=== PATIENT | female | born 1945 | race Caucasian/White ===

== ENCOUNTER 2016-07-05 21:09 | Inpatient (IN) | payer MEDICARE ==
--- NOTE | 2016-07-05 21:28 | ER Document Report ---
ED Medical Screen (RME) - General Stated Complaint: SHOULDER PAIN Notes: 70 yo female c/o right shoulder pain. fell off couch onto shoulder. did not hit head. no LOC. denies neck pain. + right leg "just doesn't feel right". hx/o DM, BS 178
[2016-07-05] MEDS ORDERED: OXYCODONE-ACETAMINOPHEN 5-325 MG TABLET PO ONE (21:31)
[2016-07-05] MEDS ORDERED: ONDANSETRON 4 MG TAB.RAPDIS PO ONE (21:53)
[2016-07-06] MEDS ORDERED: OXYCODONE HCL IR 5 MG TABLET PO ONE (02:04)
--- NOTE | 2016-07-06 02:08 | ER Document Report ---
ED Fall - General Chief Complaint: Shoulder Injury Stated Complaint: SHOULDER PAIN Time seen by provider: 02:00 Notes: Patient is a 70-year-old female that comes emergency department for chief complaint of fall injury, she states she got up from her couch, she tripped over her feet, she fell onto the floor on her right side hitting her right arm and shoulder and right hip. She complains of pain in both her right arm and shoulder and also in her hip. She denies neck pain, head injury, headache, focal numbness or weakness, bowel or bladder incontinence or retention. She is not on a blood thinner. TRAVEL OUTSIDE OF THE [place] IN LAST 30 DAYS: No - Related data Allergies/Adverse Reactions: codeine Allergy (Verified 07/05/16 21:30) diazepam [From Valium] Allergy (Verified 07/05/16 21:30) Sulfa (Sulfonamide Antibiotics) Allergy (Verified 07/05/16 21:30) Past Medical History - General Information source: Patient - Social History Smoking Status: Never Smoker Chew tobacco use (# tins/day): No Frequency of alcohol use: None Drug Abuse: None Lives with: Family Family History: Reviewed & Not Pertinent Patient has suicidal ideation: No Patient has homicidal ideation: No - Past Medical History Cardiac Medical History: Reports: Hx Hypercholesterolemia, Hx Hypertension Endocrine Medical History: Reports: Hx Diabetes Mellitus Type 2, Hx Hypothyroidism Renal/ Medical History: Denies: Hx Peritoneal Dialysis Past Surgical History: Reports: Hx Orthopedic Surgery - Immunizations Hx Diphtheria, Pertussis, Tetanus Vaccination: Yes Review of Systems - Review of Systems Constitutional: No symptoms reported EENT: No symptoms reported Cardiovascular: No symptoms reported Respiratory: No symptoms reported Gastrointestinal: No symptoms reported Genitourinary: No symptoms reported Female Genitourinary: No symptoms reported Musculoskeletal: See HPI Skin: No symptoms reported Hematologic/Lymphatic: No symptoms reported Neurological/Psychological: No symptoms reported Physical Exam - Vital signs Vitals: Temp Pulse Resp BP Pulse Ox 97.7 F 85 16 130/48 H 100 07/05/16 21:24 07/05/16 21:24 07/05/16 21:24 07/05/16 21:24 07/05/16 21:24 Interpretation: Normal - General General appearance: Alert, Anxious In distress: Mild - Patient holding her right arm close to her body, appears to be in pain - HEENT Head: Normocephalic, Atraumatic Eyes: Normal Conjunctiva: Normal Extraocular movements intact: Yes Eyelashes: Normal Pupils: PERRL Nasal: Normal Mouth/Lips: Normal Mucous membranes: Normal Pharynx: Normal Neck: Normal - Respiratory Respiratory status: No respiratory distress Chest status: Nontender. No: Tender Breath sounds: Normal. No: Decreased air movement, Wheezing Chest palpation: Normal - Cardiovascular Rhythm: Regular. No: Tachycardia Heart sounds: Normal auscultation, S1 appreciated, S2 appreciated Murmur: No - Abdominal Inspection: Normal Distension: No distension Bowel sounds: Normal Tenderness: Nontender. No: Tender, Guarding Organomegaly: No organomegaly - Back Back: Normal, Nontender. No: Tender, Vertebra tenderness - Normal cervical, thoracic, lumbar exam, no saddle anesthesia - Extremities General upper extremity: Other - Very tender over the proximal right arm, difficulty performing any range of motion, however distal child and adolescent psychiatrist, distal neurovascular exam is intact. General lower extremity: Other - Patient very tender specifically in the right groin area, cannot bear any weight on the leg, normal distal neurovascular exam. - Neurological Neuro grossly intact: Yes Cognition: Normal Orientation: AAOx4 Desiree Coma Scale Eye Opening: Spontaneous [place] Coma Scale Verbal: Oriented Dseiree Coma Scale Motor: Obeys Commands [place] Coma Scale Total: 15 Speech: Normal Motor strength normal: LUE, RUE, LLE, RLE Sensory: Normal - Psychological Associated symptoms: Normal affect, Normal mood - Skin Skin Temperature: Warm Skin Moisture: Dry Skin Color: Normal Course - Re-evaluation Re-evalutation: Review of imaging shows impaction fracture of the right proximal humerus. Patient with distal sensation and vascular exam intact, normal strength of the extremity. Normal neck, head exam. No neurological deficits. Patient denies head injury. On examination patient has significant tenderness especially in the right groin area, she states that she has not had an x-ray at, she will be sent for this, provided with more pain medication, placed in sling immobilization for the humerus. Eventually obtained x-ray of the hip, this shows acute fracture, beginning preop workup, discussed this with patient and significant other in detail. Discussed with Dr. Lombardi. Spoke with Dr. Fink, he is in agreement with preoperative studies, states he will see the patient and hope to perform operation on the patient even this morning, patient will be kept nothing by mouth as a result. Will call hospitalist for admission. 07/06/16 07:[address] Ledesma, patient will be admitted to the hospital. - Vital Signs Vital signs: Temp Pulse Resp BP Pulse Ox 97.7 F 85 20 130/48 H 100 07/05/16 21:24 07/05/16 21:24 07/06/16 02:00 07/05/16 21:24 07/05/16 21:24 - Laboratory Result Diagrams: 07/06/16 06:10 07/06/16 06:10 Laboratory results interpreted by me: 07/06/16 07/06/16 06:10 06:10 WBC 15.5 H RBC 3.61 L Hgb 10.5 L Hct 32.4 L Seg Neutrophils % 82.1 H Lymphocytes % 10.1 L Absolute Neutrophils 12.8 H Chloride 109 H BUN 25 H Creatinine 1.44 H Est GFR ( Amer) 44 L Est GFR (Non-Af Amer) 36 L Glucose 154 H - Diagnostic Test Radiology reviewed: Image reviewed, Reports reviewed Discharge - Discharge Clinical Impression: Closed right hip fracture Qualifiers: Encounter type: initial encounter Qualified Code(s): S72.001A - Fracture of unspecified part of neck of right femur, initial encounter for closed fracture Right humeral fracture Qualifiers: Encounter type: initial encounter Humerus Location: proximal Fracture type: closed Fracture morphology: other fracture Fracture alignment: nondisplaced Qualified Code(s): S42.294A - Other nondisplaced fracture of upper end of right humerus, initial encounter for closed fracture Fall Qualifiers: Encounter type: initial encounter Qualified Code(s): W19.XXXA - Unspecified fall, initial encounter Condition: Stable Disposition: ADMITTED INPATIENT Admitting Provider: Hospitalist - Dr. Ledesma Unit Admitted: Medical Floor
[2016-07-06] MEDS ORDERED: MORPHINE SULFATE 10 MG/ML INJ IV ONE (05:28)
[2016-07-06 06:34] LABS: ABSOLUTE LYMPHOCYTES (AUTO) 1.6 10^3/uL (0.5-4.7); ABSOLUTE MONOCYTES (AUTO) 1.2 10^3/uL (0.1-1.4); ABSOLUTE NEUT (AUTO) 12.8 10^3/uL (1.7-8.2); BASOPHILS % (AUTO) 0.3 % (0-2); EOSINOPHILS % (AUTO) 0.1 % (0-6); HEMATOCRIT 32.4 % (36.0-47.0); HEMOGLOBIN 10.5 g/dL (12.0-15.5); HGB HCT DIFFERENCE -0.9; LYMPHOCYTES % (AUTO) 10.1 % (13-45); MEAN CORPUSCULAR HEMOGLOBIN 29.1 pg (27.0-33.4); MEAN CORPUSCULAR HGB CONC 32.5 g/dL (32.0-36.0); MEAN CORPUSCULAR VOLUME 90 fl (80-97); MONOCYTES % (AUTO) 7.4 % (3-13); RED BLOOD COUNT 3.61 10^6/uL (3.72-5.28); RED CELL DISTRIBUTION WIDTH 13.4 % (11.5-14.0); SEGMENTED NEUTROPHILS % (AUTO) 82.1 % (42-78); WHITE BLOOD COUNT 15.5 10^3/uL (4.0-10.5)
[2016-07-06 06:47] LABS: ALANINE AMINOTRANSFERASE 34 U/L (9-52); ALKALINE PHOSPHATASE 48 U/L (38-126); ANION GAP 9 (5-19); ASPARTATE AMINO TRANSFERASE 24 U/L (14-36); BILIRUBIN,TOTAL 0.6 mg/dL (0.2-1.3); BLOOD UREA NITROGEN 25 mg/dL (7-20); CARBON DIOXIDE 23 mmol/L (22-30); CHLORIDE 109 mmol/L (98-107); CREATININE RESULT 1.44 mg/dL (0.52-1.25); GLUCOSE 154 mg/dL (75-110); POTASSIUM 4.7 mmol/L (3.6-5.0); SODIUM 140.8 mmol/L (137-145); TOTAL PROTEIN 6.9 g/dL (6.3-8.2)
[2016-07-06 06:52] LABS: PROTHROMBIN TIME 14.4 SEC (11.4-15.4)
[2016-07-06 06:53] LABS: PARTIAL THROMBOPLASTIN TIME 26.7 SEC (23.5-35.8)
[2016-07-06] MEDS ORDERED: DEXAMETHASONE SOD PHOSPHATE INJ 4 MG/1 ML VIAL ONE (07:50)
[2016-07-06] MEDS ORDERED: SUCCINYLCHOLINE CHLORIDE INJ 200 MG/10 ML VIAL ONE (07:50)
[2016-07-06] MEDS ORDERED: ONDANSETRON HCL INJ/PF 4 MG/2 ML SDV ONE (07:50)
[2016-07-06] MEDS ORDERED: PHENYLEPHRINE HCL INJ/PF 10 MG/1 ML SDV ONE (07:50)
[2016-07-06] MEDS ORDERED: MORPHINE SULFATE 10 MG/ML INJ ONE (07:57)
[2016-07-06 08:29] LABS: APPEARANCE,URINE CLEAR; BILIRUBIN,URINE NEGATIVE (NEGATIVE); GLUCOSE, URINE >=500 mg/dL (NEGATIVE); KETONES,URINE NEGATIVE (NEGATIVE); LEUKOCYTE ESTERASE,URINE NEGATIVE (NEGATIVE); NITRITE,URINE NEGATIVE (NEGATIVE); PROTEIN,URINE NEGATIVE (NEGATIVE); URINE SPECIFIC GRAVITY 1.021; UROBILINOGEN,URINE NEGATIVE mg/dL (<2.0)
[2016-07-06] MEDS ORDERED: NORMAL SALINE 1000 ML 1,000 ML IV PRN ×2 (08:57→09:00)
[2016-07-06] MEDS ORDERED: GLUCAGON,HUMAN RECOMB 1 MG INJ IM PRN (09:00)
[2016-07-06] MEDS ORDERED: IPRATROPIUM/ALBUTEROL 0.5-2.5 MG/3 ML AMPUL NEB PRN (09:00)
[2016-07-06] MEDS ORDERED: DEXTROSE 40% GEL 15 GM TUBE PO PRN ×2 (09:00)
[2016-07-06] MEDS ORDERED: DEXTROSE 50%-WATER 25 GM/50 ML DISP.SYRIN IV PRN ×2 (09:00)
[2016-07-06] MEDS ORDERED: MAGNESIUM HYDROXIDE SUSP 30 ML UDCUP PO PRN (09:05)
[2016-07-06] MEDS ORDERED: ACETAMINOPHEN 325 MG TABLET PO PRN (09:05)
[2016-07-06] MEDS ORDERED: OXYCODONE-ACETAMINOPHEN 5-325 MG TABLET PO PRN (09:05)
[2016-07-06] MEDS ORDERED: ONDANSETRON HCL INJ/PF 4 MG/2 ML SDV IV PRN ×2 (09:05→16:55)
--- NOTE | 2016-07-06 09:27 | PDOC H&P ---
History of Present Illness Admission Date/PCP: 07/06/16 08:47 Patient complains of: fall with hip and arm pain History of Present Illness: GORDON RUBIO is a 70 year old female presents to the ED from home via EMS after mechanical fall at home when she got her feet tangled up and tripped, falling hard onto her right side witih sudden pain in her hip and arm that prevented her from being able to stand or get herself up. witnessed the fall and denies head strike. states she was in her usual state of health prior to the event and no preceding chest pain, palpitations, dizziness, ASHLEY, vision changes, hearing changes, unilateral or generalized weakness, numbness or tingling. eval in the ED found Rt humeral compression/impaction type fracture and Rt intertrochanter fracture. Orthopedic surgeon consulted from the ED and asked that we admit anticipating surgery later today. She had a previous mechanical fall with ankle fracture requiring surgical repair and reports no post op complications from anesthesia, no difficulty awakening. she has no prior cardiac disease and no prior cardiac evaluation. she has excellent METS, does her own shopping, cooking, cleaning and yard work without dyspnea, chest pain or other cardiac symptoms. she has no underlying lung disease and is a never smoker. she is at low risk for perioperative cardiac event related to non vascular, low risk orthopedic surgery where the benefits of surgery outweigh the risks of not proceeding and both she and her indicate willingness to accept those risks and proceed. Past Medical History Cardiac Medical History: Reports: Hyperlipidema, Hypertension Denies: Congestive Heart Failure, Myocardial Infarction Pulmonary Medical History: Reports: None Endocrine Medical History: Reports: Diabetes Mellitus Type 2, Hypothyroidism Renal/ Medical History: Denies: Chronic Kidney Disease Musculoskeltal Medical History: Reports: Arthritis Past Surgical History Past Surgical History: Reports: Orthopedic Surgery Social History Lives with: Family Smoking Status: Never Smoker Frequency of Alcohol Use: None Hx Recreational Drug Use: No Hx Prescription Drug Abuse: No - Advance Directive Resuscitation Status: Full Code Family History Family History: Reviewed & Not Pertinent, CAD, DM Parental Family History Reviewed: Yes Children Family History Reviewed: Yes Sibling(s) Family History Reviewed.: Yes Medication/Allergy Home Medications: Amlodipine Besylate [Norvasc 5 mg Tablet] 5 mg PO DAILY 07/06/16 Aspirin [Adult Low Dose Aspirin EC] 81 mg PO DAILY 07/06/16 Atorvastatin Calcium [Lipitor 10 mg Tablet] 5 mg PO QHS 07/06/16 Benazepril HCl [Lotensin 20 mg Tablet] 20 mg PO DAILY 07/06/16 Canagliflozin/Metformin HCl [Invokamet 50-1,000 mg Tablet] 2 tab PO DAILY Fenofibrate Nanocrystallized [Tricor 48 mg Tablet] 96 mg PO DAILY 07/06/16 Levothyroxine Sodium [Synthroid 0.075 mg Tablet] 75 mcg PO DAILY 07/06/16 Omeprazole 40 mg PO DAILY 07/06/16 Allergies/Adverse Reactions: codeine Allergy (Verified 07/05/16 21:30) diazepam [From Valium] Allergy (Verified 07/05/16 21:30) Sulfa (Sulfonamide Antibiotics) Allergy (Verified 07/05/16 21:30) Review of Systems Constitutional: ABSENT: chills, fever(s), headache(s), weight gain, weight loss Eyes: ABSENT: visual disturbances Ears: ABSENT: hearing changes Cardiovascular: ABSENT: chest pain, dyspnea on exertion, edema, orthropnea, palpitations Respiratory: ABSENT: cough, hemoptysis Gastrointestinal: ABSENT: abdominal pain, constipation, diarrhea, hematemesis, hematochezia, nausea, vomiting Genitourinary: ABSENT: dysuria, hematuria Integumentary: ABSENT: rash, wounds Neurological: PRESENT: abnormal gait, paresthesias - cronic neuropathic pain in lower ext's. ABSENT: abnormal speech, confusion, dizziness, focal weakness, syncope, tingling Psychiatric: ABSENT: anxiety, depression Endocrine: ABSENT: cold intolerance, heat intolerance, polydipsia, polyuria Hematologic/Lymphatic: ABSENT: easy bleeding, easy bruising Physical Exam Vital Signs: Temp Pulse Resp BP Pulse Ox 99.4 F 79 22 H 112/59 L 99 07/06/16 08:06 07/06/16 08:06 07/06/16 08:06 07/06/16 08:06 07/06/16 08:06 General appearance: PRESENT: well-developed, well-nourished. ABSENT: no acute distress - mod distress from the pain in her arm, obese Head exam: PRESENT: atraumatic, normocephalic Eye exam: PRESENT: conjunctiva pink, EOMI, PERRLA. ABSENT: scleral icterus Mouth exam: PRESENT: moist, tongue midline Neck exam: ABSENT: carotid bruit, JVD, lymphadenopathy, thyromegaly Respiratory exam: PRESENT: clear to auscultation lanette. ABSENT: rales, rhonchi, wheezes Cardiovascular exam: PRESENT: RRR. ABSENT: diastolic murmur, rubs, systolic murmur Pulses: PRESENT: normal radial pulses, normal dorsalis pedis pul Vascular exam: PRESENT: normal capillary refill GI/Abdominal exam: PRESENT: normal bowel sounds, soft. ABSENT: distended, guarding, mass, rebound, tenderness Rectal exam: PRESENT: deferred Extremities exam: ABSENT: calf tenderness, clubbing, full ROM - ROM limited in Rt arm and leg due to pain, pedal edema Musculoskeletal exam: ABSENT: ambulatory, deformity - no obvious deformity; no ecchymosis Neurological exam: PRESENT: alert, awake, oriented to person, oriented to place , oriented to time, oriented to situation. ABSENT: motor sensory deficit Psychiatric exam: PRESENT: appropriate affect, normal mood Skin exam: PRESENT: dry, intact, warm. ABSENT: cyanosis, rash Results Laboratory Results: labs reviewed, mild leukocytosis likely stress induced; mild renal insufficiency otherwise unremarkable EKG Comments: NSR with diffusely flattened T waves but no inversion and no elevations; QTc < 400 Impressions: Shoulder X-Ray 07/05/16 21:29 IMPRESSION: Impaction type fracture of the proximal humerus. Humerus X-Ray 07/05/16 21:30 IMPRESSION: Impaction type fracture of the proximal humerus. Hip/Pelvis X-Ray 07/06/16 02:04 IMPRESSION: Minimally displaced intertrochanteric fracture of the right hip. Chest X-Ray 07/06/16 03:50 IMPRESSION: NO ACUTE RADIOGRAPHIC FINDING IN THE CHEST. Status: Image reviewed by me - reports reviewed; agree with rads Assessment & Plan - Diagnosis (1) Closed right hip fracture Qualifiers: Encounter type: initial encounter Qualified Code(s): S72.001A - Fracture of unspecified part of neck of right femur, initial encounter for closed fracture Is this a current diagnosis for this admission?: YesPlan: admit to medical floor for orthopedic sconsult and surgical repair. Ok to proceed with surgery from a medical standpoint, see HPI for details. (2) Right humeral fracture Qualifiers: Encounter type: initial encounter Humerus Location: proximal Fracture type: closed Fracture morphology: other fracture Fracture alignment: nondisplaced Qualified Code(s): S42.294A - Other nondisplaced fracture of upper end of right humerus, initial encounter for closed fracture Is this a current diagnosis for this admission?: YesPlan: as above (3) Diabetes Qualifiers: Diabetes mellitus type: type 2 Diabetes mellitus complication status: with neurologic complications Diabetes mellitus complication detail: with autonomic neuropathy Diabetes mellitus longterm insulin use: without terminal operations manager use Qualified Code(s): E11.43 - Type 2 diabetes mellitus with diabetic autonomic (poly)neuropathy Is this a current diagnosis for this admission?: YesPlan: cover with sliding scale (4) HTN (hypertension) Qualifiers: Hypertension type: essential hypertension Qualified Code(s): I10 - Essential (primary) hypertension Is this a current diagnosis for this admission?: YesPlan: continue home meds (5) Hyperlipemia Qualifiers: Hyperlipidemia type: unspecified Qualified Code(s): E78.5 - Hyperlipidemia, unspecified Is this a current diagnosis for this admission?: YesPlan: continue home meds (6) Hypothyroidism Qualifiers: Hypothyroidism type: unspecified Qualified Code(s): E03.9 - Hypothyroidism, unspecified Is this a current diagnosis for this admission?: Yes (7) Fall Qualifiers: Encounter type: initial encounter Qualified Code(s): W19.XXXA - Unspecified fall, initial encounter Is this a current diagnosis for this admission?: YesPlan: mechanical fall at home - Time Time Spent: 50 to 70 Minutes Medications reviewed and adjusted accordingly: Yes Anticipated discharge: Acute Rehab Within: within 72 hours - Inpatient Certification Medical Necessity: Significant Comorbidiites Make Outpatient Treatment Too Risky , Need for Surgery - Plan Summary Plan Summary: anticipate surgery later today, will need rehab placement in 3 days
[2016-07-06] MEDS ORDERED: ENOXAPARIN SODIUM INJ 40 MG/0.4 ML DISP.SYRIN SUBCUT ONE (10:00)
--- NOTE | 2016-07-06 10:22 | EKG REPORT ---
SEVERITY:- BORDERLINE ECG - SINUS RHYTHM BORDERLINE T WAVE ABNORMALITIES : Confirmed by: Silvana Carmichael 06-Jul-2016 10:21:29
--- NOTE | 2016-07-06 10:22 | EKG REPORT ---
SEVERITY:- BORDERLINE ECG - SINUS RHYTHM BORDERLINE T WAVE ABNORMALITIES : Confirmed by: Silvana Carmichael 06-Jul-2016 10:21:25
[2016-07-06] MEDS: HYDROMORPHONE HCL INJ/PF 2 MG/ML AMPULE IV PRN ×2 (11:20→15:11)
[2016-07-06] MEDS: DOCUSATE SODIUM 100 MG CAPSULE PO SCH (11:48)
[2016-07-06] MEDS ORDERED: DEXMEDETOMIDINE INJ 80 MCG/20 ML VIAL IV ONE (14:49)
[2016-07-06] MEDS ORDERED: KETAMINE HCL INJ 500 MG/10 ML VIAL ONE (15:15)
[2016-07-06] MEDS ORDERED: MIDAZOLAM 2 MG/2 ML INJ ONE (15:15)
[2016-07-06] MEDS ORDERED: FENTANYL CITRATE INJ/PF 100 MCG/2 ML AMPUL ONE (15:15)
[2016-07-06] MEDS ORDERED: PROPOFOL INJ 200 MG/20 ML VIAL IV ONE (15:16)
[2016-07-06] MEDS ORDERED: HYDROMORPHONE HCL INJ/PF 2 MG/ML AMPULE IV ONE (15:45)
[2016-07-06] MEDS ORDERED: MEPERIDINE HCL/PF INJ 25 MG/1 ML DISP.SYRIN IV PRN (16:55)
[2016-07-06] MEDS ORDERED: PROMETHAZINE HCL INJ 25 MG/1 ML VIAL IV PRN ×2 (16:55)
[2016-07-06] MEDS ORDERED: FENTANYL CITRATE INJ/PF 100 MCG/2 ML AMPUL IV PRN ×3 (16:55)
[2016-07-06] MEDS ORDERED: MORPHINE SULFATE 10 MG/ML INJ IV PRN (16:55)
[2016-07-06] MEDS ORDERED: DIPHENHYDRAMINE HCL 50 MG/ML VIAL IV PRN (16:55)
--- NOTE | 2016-07-06 17:48 | Operative Report ---
Operative Report DATE OF SURGERY: 07/06/16 PREOPERATIVE DIAGNOSIS: #1 Right intertrochanteric hip fracture. #2 Right proximal humerus fracture POSTOPERATIVE DIAGNOSIS: Same OPERATION: Cephalo-medullary nailing of right hip fracture SURGEON: TORSTEN COOK ANESTHESIA: GA TISSUE REMOVED OR ALTERED: None COMPLICATIONS: None ESTIMATED BLOOD LOSS: 50 mL INTRAOPERATIVE FINDINGS: As above PROCEDURE: Patient was seen and evaluated in the preoperative holding area. The right lower extremity was initialized and marked. Patient received 2 g Ancef IV for bacterial prophylaxis. Patient was taken back to the operative room where transferred operative table. Patient was placed under spinal anesthesia. Once adequate anesthetized he was carefully placed onto the hip positioner the nonoperative lower extremity and bilateral upper extremities were carefully padded and the peroneal nerve was padded and on the nonoperative extremity. The operative extremity was placed in a traction along with adduction and internal rotation. A surgical team debriefing was performed ensuring all instrumentation was available, the surgical procedure was discussed with possible concerns reviewed. A timeout was done identifying correct patient, procedure and extremity everyone in attendance agree with this and verbalized no concerns. Reduction maneuver with the use of the hip traction table were done and C-arm fluoroscopy was used to confirm optimal reduction of the intertrochanteric fracture. Once this was confirmed the lower extremity was prepped with chlor prep and draped in a sterile fashion. At this point a small skin incision was made proximal to the greater trochanter. The guidewire was placed onto the tip of the trochanter advanced down to the level of the lesser trochanter. AP and lateral fluoroscopy was used to confirm appropriate placement of the guidewire. The skin incision was then extended and the underlying fascia opened up carefully to the tip of the greater trochanter. The entry reamer was then used and advanced to the level of the lesser trochanter. At this point Nuha short gamma nail was opened up and placed onto the aiming arm and advanced down the shaft of the femur. AP and lateral fluoroscopy was then used to confirm appropriate placement of the nail. Then turned my attention to the compression screw fixation in the femoral head. The trochars were advanced to the skin, a skin incision was made, careful dissection down to the fascia to the lateral femoral cortex was then partaken. The guidewire was then used and placed in the center center position with the tip apex distance less than 25 mm. Once this position was obtained the size of the compression screw was measured. AP and lateral fluoroscopy used to confirm appropriate placement of our guide wire. The step reamer was used to drill up through the femoral neck and head. I then carefully advanced the compression screw into position. AP and lateral fluoroscopy was done to confirm appropriate placement of the compression screw this was then locked into position proximally. The compression screw was then disengaged from its mounting device and the guidewire was removed. Lastly proceeded with locking of the nail distally. Using the aiming arm the trochars were advanced to the skin, a skin incision was made. Careful dissection done with a hemostat to the lateral cortex of the femur. I then drilled the near and far cortices. Measured the appropriate sized distal locking screw and secured it into position. At this point AP/lateral and oblique views of the proximal and distal aspect of the nail were taken confirming appropriate placement of the compression screw, distal locking screw and intramedullary nail. Once this was confirmed I proceeded with copious irrigation of the proximal and distal wounds. The deep tissues were closed with 0 Vicryl suture, subcutaneous tissues and dermis were closed with 2-0 Vicryl. The skin was closed frankie. A dressing was placed. Sponge counts, instrument counts and needle counts were correct. Patient was then transferred from the operating room table to the operating room stretcher. The was no intraoperative complications patient tolerated procedure well was stable to PACU. Implants used: [place] 11 x 180 mm 130 Short Gamma Nail with a 95 mm compression screw Postoperative plan: Patient will begin physical therapy on postop day #1 with Xarelto daily.
[2016-07-06] MEDS ORDERED: CEFAZOLIN 2 GM/D5W RTU 2 GM/50 ML RTUPB IV SCH (18:00)
[2016-07-06] MEDS: CEFAZOLIN 2 GM/D5W RTU 2 GM/50 ML RTUPB IV SCH (21:18)
[2016-07-06] MEDS: OXYCODONE-ACETAMINOPHEN 5-325 MG TABLET PO PRN (22:51)
[2016-07-07] MEDS: OXYCODONE-ACETAMINOPHEN 5-325 MG TABLET PO PRN ×3 (02:46→17:11)
[2016-07-07] MEDS: LANSOPRAZOLE 15 MG TAB.RAP.DR PO SCH (05:13)
[2016-07-07] MEDS: CEFAZOLIN 2 GM/D5W RTU 2 GM/50 ML RTUPB IV SCH (05:14)
[2016-07-07] MEDS: RINGERS SOLUTION,LACTATED 1,000 ML IV PRN ×2 (05:15→19:29)
[2016-07-07 06:37] LABS: ABSOLUTE BASOPHILS # (AUTO) 0.1 10^3/uL (0.0-0.2); ABSOLUTE EOSINOPHILS # (AUTO) 0.1 10^3/uL (0.0-0.6); ABSOLUTE LYMPHOCYTES (AUTO) 2.1 10^3/uL (0.5-4.7); ABSOLUTE MONOCYTES (AUTO) 0.9 10^3/uL (0.1-1.4); ABSOLUTE NEUT (AUTO) 9.6 10^3/uL (1.7-8.2); BASOPHILS % (AUTO) 0.5 % (0-2); EOSINOPHILS % (AUTO) 0.5 % (0-6); HEMATOCRIT 26.7 % (36.0-47.0); HEMOGLOBIN 8.5 g/dL (12.0-15.5); HGB HCT DIFFERENCE -1.2; LYMPHOCYTES % (AUTO) 16.7 % (13-45); MEAN CORPUSCULAR HEMOGLOBIN 28.8 pg (27.0-33.4); MEAN CORPUSCULAR HGB CONC 31.9 g/dL (32.0-36.0); MEAN CORPUSCULAR VOLUME 90 fl (80-97); MONOCYTES % (AUTO) 7.4 % (3-13); RED BLOOD COUNT 2.95 10^6/uL (3.72-5.28); RED CELL DISTRIBUTION WIDTH 13.5 % (11.5-14.0); SEGMENTED NEUTROPHILS % (AUTO) 74.9 % (42-78); WHITE BLOOD COUNT 12.8 10^3/uL (4.0-10.5)
[2016-07-07 06:52] LABS: ANION GAP 11 (5-19); BLOOD UREA NITROGEN 26 mg/dL (7-20); CARBON DIOXIDE 19 mmol/L (22-30); CHLORIDE 110 mmol/L (98-107); CREATININE RESULT 1.43 mg/dL (0.52-1.25); GLUCOSE 107 mg/dL (75-110); POTASSIUM 4.5 mmol/L (3.6-5.0); SODIUM 139.7 mmol/L (137-145)
[2016-07-07] MEDS: ENOXAPARIN SODIUM INJ 40 MG/0.4 ML DISP.SYRIN SUBCUT SCH (08:53)
[2016-07-07] MEDS: DOCUSATE SODIUM 100 MG CAPSULE PO SCH (11:41)
--- NOTE | 2016-07-07 15:15 | PDOC PROGRESS REPORT ---
Subjective Progress Note for:: 07/07/16 Subjective:: reason for today's visit: f/u hip and humeral fx hospital course: GORDON RUBIO is a 70 year old female presents to the ED from home via EMS after mechanical fall at home when she got her feet tangled up and tripped, falling hard onto her right side witih sudden pain in her hip and arm that prevented her from being able to stand or get herself up. witnessed the fall and denies head strike. states she was in her usual state of health prior to the event and no preceding chest pain, palpitations, dizziness, ASHLEY, vision changes, hearing changes, unilateral or generalized weakness, numbness or tingling. eval in the ED found Rt humeral compression/impaction type fracture and Rt intertrochanter fracture. Orthopedic surgeon consulted from the ED and asked that we admit anticipating surgery later today. She had a previous mechanical fall with ankle fracture requiring surgical repair and reports no post op complications from anesthesia, no difficulty awakening. she has no prior cardiac disease and no prior cardiac evaluation. she has excellent METS, does her own shopping, cooking, cleaning and yard work without dyspnea, chest pain or other cardiac symptoms. she has no underlying lung disease and is a never smoker. she is at low risk for perioperative cardiac event related to non vascular, low risk orthopedic surgery where the benefits of surgery outweigh the risks of not proceeding and both she and her indicate willingness to accept those risks and proceed. ortho took for surgical repair of hip with IM nailing and recommending conservative management of the humeral fx. she seems to have tolerated the procedure well. post op H/H did drop as expected without alternate source for blood loss evident. Subjective: c/o intense pain in her arm as before, no better but no different than above. hip pain is tolerable with current regimen. denies chest pain, fevers/ chills, N/V/D. ROS: per HPI plus a total of 10 systems reviewed, pertinent positives and negatives noted above, remaining systems negative. Physical Exam Vital Signs: Temp Pulse Resp BP Pulse Ox 98.7 F 81 16 115/40 L 100 07/07/16 12:00 07/07/16 12:37 07/07/16 12:37 07/07/16 12:00 07/07/16 12:37 Intake & Output 07/06/16 07/07/16 07/08/16 06:59 06:59 06:59 Intake Total 2200 Output Total 490 Balance 1710 Weight 61.4 kg EXAM GENERAL: NAD; well developed, well nourished; no obese; alert and oriented to person, place, time, situation HEENT: normocephalic, atraumatic; no conjunctival injection, no scleral icterus ; oral mucosa moist; RESPIRATORY: no accessory muscle use, no increased WOB, good air entry bilaterally; no wheezes, rales, rhonchi; no inspiratory crackles CARDIO: no JVD; RRR; no systolic murmur; no tachycardia GI: soft; nondistended; normal bowel sounds; no hepato spleno megaly; no rebound, rigidity, guarding VASCULAR: no carotid bruit; no abdominal bruit; no pallor; 2+ radial, DP pulse ; normal capillary refill EXTREMITIES: no calf tender; no palpable cords in calf; no clubbing, cyanosis , pedal edema PSYCH: normal affect, normal mood SKIN: warm; moist; no petechiae; no telengectasias; no jaundice; no rash Results Laboratory Results: 07/07/16 05:42 07/07/16 05:42 07/07/16 07/07/16 05:42 05:42 WBC 12.8 H RBC 2.95 L Hgb 8.5 L Hct 26.7 L MCV 90 MCH 28.8 MCHC 31.9 L RDW 13.5 Plt Count 250 Seg Neutrophils % 74.9 Lymphocytes % 16.7 Monocytes % 7.4 Eosinophils % 0.5 Basophils % 0.5 Absolute Neutrophils 9.6 H Absolute Lymphocytes 2.1 Absolute Monocytes 0.9 Absolute Eosinophils 0.1 Absolute Basophils 0.1 Sodium 139.7 Potassium 4.5 Chloride 110 H Carbon Dioxide 19 L Anion Gap 11 BUN 26 H Creatinine 1.43 H Est GFR ( Amer) 44 L Est GFR (Non-Af Amer) 36 L Glucose 107 Calcium 9.0 Impressions: Chest X-Ray 07/06/16 03:50 IMPRESSION: NO ACUTE RADIOGRAPHIC FINDING IN THE CHEST. Hip/Pelvis X-Ray 07/07/16 00:00 IMPRESSION: SATISFACTORY POSTOPERATIVE RIGHT HIP. Status: Imported from PACS Assessment & Plan - Diagnosis (1) Closed right hip fracture Qualifiers: Encounter type: initial encounter Qualified Code(s): S72.001A - Fracture of unspecified part of neck of right femur, initial encounter for closed fracture Is this a current diagnosis for this admission?: YesPlan: s/p surgical repair (2) Right humeral fracture Qualifiers: Encounter type: initial encounter Humerus Location: proximal Fracture type: closed Fracture morphology: other fracture Fracture alignment: nondisplaced Qualified Code(s): S42.294A - Other nondisplaced fracture of upper end of right humerus, initial encounter for closed fracture Is this a current diagnosis for this admission?: YesPlan: conservative management with immobilization and pain control (3) Diabetes Qualifiers: Diabetes mellitus type: type 2 Diabetes mellitus complication status: with neurologic complications Diabetes mellitus complication detail: with autonomic neuropathy Diabetes mellitus long term care administrator insulin use: without long term care administrator use Qualified Code(s): E11.43 - Type 2 diabetes mellitus with diabetic autonomic (poly)neuropathy; Z79.4 - intermediate frame tender (current) use of insulin Is this a current diagnosis for this admission?: Yes (4) HTN (hypertension) Qualifiers: Hypertension type: essential hypertension Qualified Code(s): I10 - Essential (primary) hypertension Is this a current diagnosis for this admission?: Yes (5) Hyperlipemia Qualifiers: Hyperlipidemia type: unspecified Qualified Code(s): E78.5 - Hyperlipidemia, unspecified Is this a current diagnosis for this admission?: Yes (6) Hypothyroidism Qualifiers: Hypothyroidism type: unspecified Qualified Code(s): E03.9 - Hypothyroidism, unspecified Is this a current diagnosis for this admission?: Yes (7) Fall Qualifiers: Encounter type: initial encounter Qualified Code(s): W19.XXXA - Unspecified fall, initial encounter Is this a current diagnosis for this admission?: Yes (8) Postoperative anemia Is this a current diagnosis for this admission?: YesPlan: likely related to orthopedic surgery; f/u labs later today, transfuse as needed. - Time Time Spent with patient: 15-24 minutes Anticipated discharge: Acute Rehab Within: within 24 hours
[2016-07-07 16:17] LABS: ABSOLUTE EOSINOPHILS # (AUTO) 0.4 10^3/uL (0.0-0.6); ABSOLUTE LYMPHOCYTES (AUTO) 2.7 10^3/uL (0.5-4.7); ABSOLUTE MONOCYTES (AUTO) 1.1 10^3/uL (0.1-1.4); ABSOLUTE NEUT (AUTO) 8.5 10^3/uL (1.7-8.2); BASOPHILS % (AUTO) 0.4 % (0-2); EOSINOPHILS % (AUTO) 3.5 % (0-6); HEMATOCRIT 26.1 % (36.0-47.0); HEMOGLOBIN 8.5 g/dL (12.0-15.5); HGB HCT DIFFERENCE -0.6; LYMPHOCYTES % (AUTO) 21.1 % (13-45); MEAN CORPUSCULAR HEMOGLOBIN 29.5 pg (27.0-33.4); MEAN CORPUSCULAR HGB CONC 32.7 g/dL (32.0-36.0); MEAN CORPUSCULAR VOLUME 90 fl (80-97); MONOCYTES % (AUTO) 8.4 % (3-13); RED CELL DISTRIBUTION WIDTH 13.5 % (11.5-14.0); SEGMENTED NEUTROPHILS % (AUTO) 66.6 % (42-78); WHITE BLOOD COUNT 12.8 10^3/uL (4.0-10.5)
[2016-07-07] MEDS ORDERED: [UNRECOGNIZED DRUG - OTHER] PO SCH (17:45)
[2016-07-07] MEDS ORDERED: PHARMACY COMMUNICATION ORDER MC NR (17:45)
[2016-07-07] MEDS ORDERED: CANAGLIFLOZIN PO SCH (17:45)
[2016-07-07] MEDS ORDERED: METFORMIN HCL PO SCH (17:45)
[2016-07-07] MEDS: INSULIN LISPRO 100 UNIT/ML 3 ML VIAL SUBCUT PRN ×2 (17:55→23:51)
[2016-07-07] MEDS ORDERED: IBUPROFEN 800 MG TABLET PO PRN (18:12)
[2016-07-07] MEDS: ATORVASTATIN CALCIUM 10 MG TABLET PO SCH (23:49)
[2016-07-08] MEDS: OXYCODONE-ACETAMINOPHEN 5-325 MG TABLET PO PRN (04:55)
[2016-07-08] MEDS: LANSOPRAZOLE 15 MG TAB.RAP.DR PO SCH (05:37)
[2016-07-08 07:26] LABS: ABSOLUTE EOSINOPHILS # (AUTO) 0.4 10^3/uL (0.0-0.6); ABSOLUTE MONOCYTES (AUTO) 0.8 10^3/uL (0.1-1.4); ABSOLUTE NEUT (AUTO) 7.1 10^3/uL (1.7-8.2); BASOPHILS % (AUTO) 0.2 % (0-2); EOSINOPHILS % (AUTO) 4.1 % (0-6); HEMATOCRIT 24.7 % (36.0-47.0); HEMOGLOBIN 8.2 g/dL (12.0-15.5); HGB HCT DIFFERENCE -0.1; LYMPHOCYTES % (AUTO) 11.1 % (13-45); MEAN CORPUSCULAR HEMOGLOBIN 29.6 pg (27.0-33.4); MEAN CORPUSCULAR HGB CONC 33.1 g/dL (32.0-36.0); MEAN CORPUSCULAR VOLUME 89 fl (80-97); MONOCYTES % (AUTO) 8.6 % (3-13); RED BLOOD COUNT 2.77 10^6/uL (3.72-5.28); RED CELL DISTRIBUTION WIDTH 13.4 % (11.5-14.0); WHITE BLOOD COUNT 9.3 10^3/uL (4.0-10.5)
[2016-07-08 07:52] LABS: ANION GAP 8 (5-19); BLOOD UREA NITROGEN 23 mg/dL (7-20); CALCIUM 8.8 mg/dL (8.4-10.2); CARBON DIOXIDE 21 mmol/L (22-30); CHLORIDE 109 mmol/L (98-107); CREATININE RESULT 1.37 mg/dL (0.52-1.25); GLUCOSE 148 mg/dL (75-110); POTASSIUM 4.5 mmol/L (3.6-5.0); SODIUM 137.5 mmol/L (137-145)
[2016-07-08] MEDS: LEVOTHYROXINE SODIUM 0.075 MG TABLET PO SCH (09:23)
[2016-07-08] MEDS: DOCUSATE SODIUM 100 MG CAPSULE PO SCH (09:23)
[2016-07-08] MEDS: ENOXAPARIN SODIUM INJ 40 MG/0.4 ML DISP.SYRIN SUBCUT SCH (09:24)
[2016-07-08] MEDS: ASPIRIN 81 MG TABLET, ENT COATED PO SCH (09:24)
--- NOTE | 2016-07-08 11:28 | PDOC PROGRESS REPORT ---
Subjective Progress Note for:: 07/08/16 Subjective:: Patient is resting in bed comfortably and is other active and oriented. Physical Exam Vital Signs: Temp Pulse Resp BP Pulse Ox 36.6 C 79 17 127/47 H 95 07/08/16 07:34 07/08/16 07:34 07/08/16 07:34 07/08/16 07:34 07/08/16 07:34 Intake & Output 07/07/16 07/08/16 07/09/16 06:59 06:59 07:59 Intake Total 2200 2815 Output Total 490 775 Balance 1710 2040 Weight 61.4 kg Adult Front & Back Image: 1 - Dressing dry clean and intact. Neurovascular intact distally 2 - Right upper extremity is neurovascularly intact distally. Tenderness to palpation as expected with mild swelling. Sling in place and intact Results Laboratory Results: 07/08/16 06:46 07/08/16 06:46 07/07/16 07/08/16 07/08/16 15:50 06:46 06:46 WBC 12.8 H 9.3 RBC 2.90 L 2.77 L Hgb 8.5 L 8.2 L Hct 26.1 L 24.7 L MCV 90 89 MCH 29.5 29.6 MCHC 32.7 33.1 RDW 13.5 13.4 Plt Count 237 206 Seg Neutrophils % 66.6 76.0 Lymphocytes % 21.1 11.1 L Monocytes % 8.4 8.6 Eosinophils % 3.5 4.1 Basophils % 0.4 0.2 Absolute Neutrophils 8.5 H 7.1 Absolute Lymphocytes 2.7 1.0 Absolute Monocytes 1.1 0.8 Absolute Eosinophils 0.4 0.4 Absolute Basophils 0.0 0.0 Sodium 137.5 Potassium 4.5 Chloride 109 H Carbon Dioxide 21 L Anion Gap 8 BUN 23 H Creatinine 1.37 H Est GFR ( Amer) 46 L Est GFR (Non-Af Amer) 38 L Glucose 148 H Calcium 8.8 Impressions: Shoulder X-Ray 07/05/16 21:29 IMPRESSION: Impaction type fracture of the proximal humerus. Humerus X-Ray 07/05/16 21:30 IMPRESSION: Impaction type fracture of the proximal humerus. Fluoroscopy 07/06/16 00:00 IMPRESSION: Please see combined report for performance of procedure and radiologic supervision and interpretation. Chest X-Ray 07/06/16 03:50 IMPRESSION: NO ACUTE RADIOGRAPHIC FINDING IN THE CHEST. Hip/Pelvis X-Ray 07/07/16 00:00 IMPRESSION: SATISFACTORY POSTOPERATIVE RIGHT HIP. Assessment & Plan - Plan Summary Plan Summary: 70-year-old female who is postop day #2 after cephalo-medullary nailing of the right intertrochanteric hip fracture and nonoperative treatment of her right proximal humerus fracture Patient is to be weightbearing as tolerated right lower extremity and nonweightbearing in a sling of the right upper extremity Continue pain control and DVT prophylaxis. Continue H&H monitoring
[2016-07-08] MEDS ORDERED: ONDANSETRON 4 MG TAB.RAPDIS PO PRN (11:41)
--- NOTE | 2016-07-08 13:59 | PDOC PROGRESS REPORT ---
Subjective Progress Note for:: 07/08/16 Subjective:: reason for today's visit: f/u hip and humeral fx hospital course: GORDON RUBIO is a 70 year old female presents to the ED from home via EMS after mechanical fall at home when she got her feet tangled up and tripped, falling hard onto her right side witih sudden pain in her hip and arm that prevented her from being able to stand or get herself up. witnessed the fall and denies head strike. states she was in her usual state of health prior to the event and no preceding chest pain, palpitations, dizziness, ASHLEY, vision changes, hearing changes, unilateral or generalized weakness, numbness or tingling. eval in the ED found Rt humeral compression/impaction type fracture and Rt intertrochanter fracture. Orthopedic surgeon consulted from the ED and asked that we admit anticipating surgery later today. She had a previous mechanical fall with ankle fracture requiring surgical repair and reports no post op complications from anesthesia, no difficulty awakening. she has no prior cardiac disease and no prior cardiac evaluation. she has excellent METS, does her own shopping, cooking, cleaning and yard work without dyspnea, chest pain or other cardiac symptoms. she has no underlying lung disease and is a never smoker. she is at low risk for perioperative cardiac event related to non vascular, low risk orthopedic surgery where the benefits of surgery outweigh the risks of not proceeding and both she and her indicate willingness to accept those risks and proceed. ortho took for surgical repair of hip with IM nailing and recommending conservative management of the humeral fx. she seems to have tolerated the procedure well. post op H/H did drop as expected and without alternate source for blood loss evident. she lost her IV access and has refused to have anymore attempts at present. Subjective: c/o intense pain in her arm as before, no better and no different than above. hip pain is tolerable with current regimen. denies chest pain, fevers/ chills, N/V/D. ROS: per HPI plus a total of 10 systems reviewed, pertinent positives and negatives noted above, remaining systems negative. Physical Exam Vital Signs: Temp Pulse Resp BP Pulse Ox 97.9 F 84 17 152/48 H 96 07/08/16 11:50 07/08/16 12:55 07/08/16 12:55 07/08/16 11:50 07/08/16 11:50 Intake & Output 07/07/16 07/08/16 07/09/16 06:59 06:59 07:59 Intake Total 2200 2815 Output Total 490 775 Balance 1710 0 Weight 61.4 kg EXAM GENERAL: NAD; well developed, well nourished; no obese; alert and oriented to person, place, time, situation HEENT: normocephalic, atraumatic; no conjunctival injection, no scleral icterus ; oral mucosa moist; RESPIRATORY: no accessory muscle use, no increased WOB, good air entry bilaterally; no wheezes, rales, rhonchi; no inspiratory crackles CARDIO: no JVD; RRR; no systolic murmur; no tachycardia GI: soft; nondistended; normal bowel sounds; VASCULAR: no pallor; 2+ radial pulse; normal capillary refill EXTREMITIES: no calf tender; no palpable cords in calf; no clubbing, cyanosis , pedal edema; wound c/d/i PSYCH: normal affect, normal mood SKIN: warm; moist; no petechiae; no telengectasias; no jaundice; no rash Results Laboratory Results: 07/08/16 06:46 07/08/16 06:46 07/07/16 07/08/16 07/08/16 15:50 06:46 06:46 WBC 12.8 H 9.3 RBC 2.90 L 2.77 L Hgb 8.5 L 8.2 L Hct 26.1 L 24.7 L MCV 90 89 MCH 29.5 29.6 MCHC 32.7 33.1 RDW 13.5 13.4 Plt Count 237 206 Seg Neutrophils % 66.6 76.0 Lymphocytes % 21.1 11.1 L Monocytes % 8.4 8.6 Eosinophils % 3.5 4.1 Basophils % 0.4 0.2 Absolute Neutrophils 8.5 H 7.1 Absolute Lymphocytes 2.7 1.0 Absolute Monocytes 1.1 0.8 Absolute Eosinophils 0.4 0.4 Absolute Basophils 0.0 0.0 Sodium 137.5 Potassium 4.5 Chloride 109 H Carbon Dioxide 21 L Anion Gap 8 BUN 23 H Creatinine 1.37 H Est GFR ( Amer) 46 L Est GFR (Non-Af Amer) 38 L Glucose 148 H Calcium 8.8 las reviewed, H/h down only slightly again this morning Assessment & Plan - Diagnosis (1) Closed right hip fracture Qualifiers: Encounter type: initial encounter Qualified Code(s): S72.001A - Fracture of unspecified part of neck of right femur, initial encounter for closed fracture Is this a current diagnosis for this admission?: YesPlan: s/p surgical repair; awaiting placement in rehab when bed available. continue PT (2) Right humeral fracture Qualifiers: Encounter type: initial encounter Humerus Location: proximal Fracture type: closed Fracture morphology: other fracture Fracture alignment: nondisplaced Qualified Code(s): S42.294A - Other nondisplaced fracture of upper end of right humerus, initial encounter for closed fracture Is this a current diagnosis for this admission?: YesPlan: conservative management with immobilization and pain control (3) Diabetes Qualifiers: Diabetes mellitus type: type 2 Diabetes mellitus complication status: with neurologic complications Diabetes mellitus complication detail: with autonomic neuropathy Diabetes mellitus [facility] insulin use: without superintendent marine oil terminal use Qualified Code(s): E11.43 - Type 2 diabetes mellitus with diabetic autonomic (poly)neuropathy; Z79.4 - detention (current) use of insulin Is this a current diagnosis for this admission?: Yes (4) HTN (hypertension) Qualifiers: Hypertension type: essential hypertension Qualified Code(s): I10 - Essential (primary) hypertension Is this a current diagnosis for this admission?: Yes (5) Hyperlipemia Qualifiers: Hyperlipidemia type: unspecified Qualified Code(s): E78.5 - Hyperlipidemia, unspecified Is this a current diagnosis for this admission?: Yes (6) Hypothyroidism Qualifiers: Hypothyroidism type: unspecified Qualified Code(s): E03.9 - Hypothyroidism, unspecified Is this a current diagnosis for this admission?: Yes (7) Fall Qualifiers: Encounter type: initial encounter Qualified Code(s): W19.XXXA - Unspecified fall, initial encounter Is this a current diagnosis for this admission?: Yes (8) Postoperative anemia Is this a current diagnosis for this admission?: Yes - Time Time Spent with patient: 15-24 minutes
[2016-07-08] MEDS: HYDROCODONE/ACETAMINOPHEN 5-325 MG TABLET PO PRN (17:32)
[2016-07-08] MEDS: ATORVASTATIN CALCIUM 10 MG TABLET PO SCH (21:23)
[2016-07-09] MEDS: LANSOPRAZOLE 15 MG TAB.RAP.DR PO SCH (05:24)
[2016-07-09] MEDS: HYDROCODONE/ACETAMINOPHEN 5-325 MG TABLET PO PRN ×4 (05:26→22:11)
[2016-07-09 06:11] LABS: ABSOLUTE EOSINOPHILS # (AUTO) 0.5 10^3/uL (0.0-0.6); ABSOLUTE LYMPHOCYTES (AUTO) 1.9 10^3/uL (0.5-4.7); ABSOLUTE NEUT (AUTO) 6.1 10^3/uL (1.7-8.2); BASOPHILS % (AUTO) 0.4 % (0-2); EOSINOPHILS % (AUTO) 4.8 % (0-6); HEMATOCRIT 26.1 % (36.0-47.0); HEMOGLOBIN 8.5 g/dL (12.0-15.5); HGB HCT DIFFERENCE -0.6; LYMPHOCYTES % (AUTO) 20.4 % (13-45); MEAN CORPUSCULAR HEMOGLOBIN 29.2 pg (27.0-33.4); MEAN CORPUSCULAR HGB CONC 32.5 g/dL (32.0-36.0); MEAN CORPUSCULAR VOLUME 90 fl (80-97); MONOCYTES % (AUTO) 10.4 % (3-13); RED CELL DISTRIBUTION WIDTH 13.1 % (11.5-14.0); WHITE BLOOD COUNT 9.5 10^3/uL (4.0-10.5)
[2016-07-09 06:32] LABS: ANION GAP 8 (5-19); BLOOD UREA NITROGEN 19 mg/dL (7-20); CALCIUM 9.2 mg/dL (8.4-10.2); CARBON DIOXIDE 23 mmol/L (22-30); CHLORIDE 110 mmol/L (98-107); CREATININE RESULT 1.12 mg/dL (0.52-1.25); GLUCOSE 142 mg/dL (75-110); POTASSIUM 4.4 mmol/L (3.6-5.0); SODIUM 140.5 mmol/L (137-145)
[2016-07-09] MEDS: ASPIRIN 81 MG TABLET, ENT COATED PO SCH (11:46)
[2016-07-09] MEDS: LEVOTHYROXINE SODIUM 0.075 MG TABLET PO SCH (11:46)
[2016-07-09] MEDS: ENOXAPARIN SODIUM INJ 40 MG/0.4 ML DISP.SYRIN SUBCUT SCH (11:47)
[2016-07-09] MEDS: DOCUSATE SODIUM 100 MG CAPSULE PO SCH (11:47)
--- NOTE | 2016-07-09 16:28 | PDOC PROGRESS REPORT ---
Subjective Progress Note for:: 07/09/16 Subjective:: reason for today's visit: f/u hip and humeral fx hospital course: GORDON RUBIO is a 70 year old female presents to the ED from home via EMS after mechanical fall at home when she got her feet tangled up and tripped, falling hard onto her right side witih sudden pain in her hip and arm that prevented her from being able to stand or get herself up. witnessed the fall and denies head strike. states she was in her usual state of health prior to the event and no preceding chest pain, palpitations, dizziness, ASHLEY, vision changes, hearing changes, unilateral or generalized weakness, numbness or tingling. eval in the ED found Rt humeral compression/impaction type fracture and Rt intertrochanter fracture. Orthopedic surgeon consulted from the ED and asked that we admit anticipating surgery later today. She had a previous mechanical fall with ankle fracture requiring surgical repair and reports no post op complications from anesthesia, no difficulty awakening. she has no prior cardiac disease and no prior cardiac evaluation. she has excellent METS, does her own shopping, cooking, cleaning and yard work without dyspnea, chest pain or other cardiac symptoms. she has no underlying lung disease and is a never smoker. she is at low risk for perioperative cardiac event related to non vascular, low risk orthopedic surgery where the benefits of surgery outweigh the risks of not proceeding and both she and her indicate willingness to accept those risks and proceed. ortho took for surgical repair of hip with IM nailing and recommending conservative management of the humeral fx. she seems to have tolerated the procedure well. post op H/H did drop as expected and without alternate source for blood loss evident. H/H has stabilized. Subjective: c/o intense pain in her arm as before, no better and no different than above. hip pain is tolerable with current regimen. denies chest pain, fevers/ chills, N/V/D. ROS: per HPI plus a total of 10 systems reviewed, pertinent positives and negatives noted above, remaining systems negative. Physical Exam Vital Signs: Temp Pulse Resp BP Pulse Ox 98.0 F 87 18 146/64 H 98 07/09/16 11:48 07/09/16 11:48 07/09/16 11:48 07/09/16 11:48 07/09/16 11:48 Intake & Output 07/08/16 07/09/16 07/10/16 05:59 06:59 06:59 Intake Total Output Total Balance EXAM GENERAL: NAD; well developed, well nourished; no obese; alert and oriented to person, place, time, situation HEENT: normocephalic, atraumatic; no conjunctival injection, no scleral icterus ; oral mucosa moist; RESPIRATORY: no accessory muscle use, no increased WOB, good air entry bilaterally; no wheezes, rales, rhonchi; no inspiratory crackles CARDIO: no JVD; RRR; no systolic murmur; no tachycardia GI: soft; nondistended; normal bowel sounds; VASCULAR: no pallor; 2+ radial pulse; normal capillary refill EXTREMITIES: no calf tender; no palpable cords in calf; no clubbing, cyanosis , pedal edema; wound c/d/i PSYCH: normal affect, normal mood SKIN: warm; moist; no petechiae; no telengectasias; no jaundice; no rash Results Laboratory Results: 07/09/16 05:47 07/09/16 05:47 07/09/16 07/09/16 05:47 05:47 WBC 9.5 RBC 2.90 L Hgb 8.5 L Hct 26.1 L MCV 90 MCH 29.2 MCHC 32.5 RDW 13.1 Plt Count 244 Seg Neutrophils % 64.0 Lymphocytes % 20.4 Monocytes % 10.4 Eosinophils % 4.8 Basophils % 0.4 Absolute Neutrophils 6.1 Absolute Lymphocytes 1.9 Absolute Monocytes 1.0 Absolute Eosinophils 0.5 Absolute Basophils 0.0 Sodium 140.5 Potassium 4.4 Chloride 110 H Carbon Dioxide 23 Anion Gap 8 BUN 19 Creatinine 1.12 Est GFR ( Amer) 58 L Est GFR (Non-Af Amer) 48 L Glucose 142 H Calcium 9.2 Impressions: Shoulder X-Ray 07/05/16 21:29 IMPRESSION: Impaction type fracture of the proximal humerus. Humerus X-Ray 07/05/16 21:30 IMPRESSION: Impaction type fracture of the proximal humerus. Fluoroscopy 07/06/16 00:00 IMPRESSION: Please see combined report for performance of procedure and radiologic supervision and interpretation. Chest X-Ray 07/06/16 03:50 IMPRESSION: NO ACUTE RADIOGRAPHIC FINDING IN THE CHEST. Hip/Pelvis X-Ray 03/10/17 00:00 IMPRESSION: SATISFACTORY POSTOPERATIVE RIGHT HIP. Assessment & Plan - Diagnosis (1) Closed right hip fracture Qualifiers: Encounter type: initial encounter Qualified Code(s): S72.001A - Fracture of unspecified part of neck of right femur, initial encounter for closed fracture Is this a current diagnosis for this admission?: Yes (2) Right humeral fracture Qualifiers: Encounter type: initial encounter Humerus Location: proximal Fracture type: closed Fracture morphology: other fracture Fracture alignment: nondisplaced Qualified Code(s): S42.294A - Other nondisplaced fracture of upper end of right humerus, initial encounter for closed fracture Is this a current diagnosis for this admission?: Yes (3) Diabetes Qualifiers: Diabetes mellitus type: type 2 Diabetes mellitus complication status: with neurologic complications Diabetes mellitus complication detail: with autonomic neuropathy Diabetes mellitus nursing home insulin use: without nursing home use Qualified Code(s): E11.43 - Type 2 diabetes mellitus with diabetic autonomic (poly)neuropathy; Z79.4 - terminal manager (current) use of insulin Is this a current diagnosis for this admission?: Yes (4) HTN (hypertension) Qualifiers: Hypertension type: essential hypertension Qualified Code(s): I10 - Essential (primary) hypertension Is this a current diagnosis for this admission?: Yes (5) Hyperlipemia Qualifiers: Hyperlipidemia type: unspecified Qualified Code(s): E78.5 - Hyperlipidemia, unspecified Is this a current diagnosis for this admission?: Yes (6) Hypothyroidism Qualifiers: Hypothyroidism type: unspecified Qualified Code(s): E03.9 - Hypothyroidism, unspecified Is this a current diagnosis for this admission?: Yes (7) Fall Qualifiers: Encounter type: initial encounter Qualified Code(s): W19.XXXA - Unspecified fall, initial encounter Is this a current diagnosis for this admission?: Yes (8) Postoperative anemia Is this a current diagnosis for this admission?: Yes - Time Time Spent with patient: 15-24 minutes - Plan Summary Plan Summary: transfer to rehab once bed offer made; medicallly clear to discharge anytime
[2016-07-09] MEDS: ATORVASTATIN CALCIUM 10 MG TABLET PO SCH (21:38)
[2016-07-10] MEDS: TRAMADOL HCL 50 MG TABLET PO PRN ×2 (01:34→10:15)
[2016-07-10 06:30] LABS: ABSOLUTE EOSINOPHILS # (AUTO) 0.3 10^3/uL (0.0-0.6); ABSOLUTE MONOCYTES (AUTO) 0.8 10^3/uL (0.1-1.4); ABSOLUTE NEUT (AUTO) 5.5 10^3/uL (1.7-8.2); BASOPHILS % (AUTO) 0.3 % (0-2); EOSINOPHILS % (AUTO) 3.8 % (0-6); HEMATOCRIT 24.9 % (36.0-47.0); HEMOGLOBIN 8.3 g/dL (12.0-15.5); LYMPHOCYTES % (AUTO) 22.9 % (13-45); MEAN CORPUSCULAR HEMOGLOBIN 29.7 pg (27.0-33.4); MEAN CORPUSCULAR HGB CONC 33.1 g/dL (32.0-36.0); MEAN CORPUSCULAR VOLUME 90 fl (80-97); RED BLOOD COUNT 2.78 10^6/uL (3.72-5.28); RED CELL DISTRIBUTION WIDTH 13.1 % (11.5-14.0); WHITE BLOOD COUNT 8.6 10^3/uL (4.0-10.5)
[2016-07-10 06:49] LABS: ANION GAP 8 (5-19); BLOOD UREA NITROGEN 16 mg/dL (7-20); CARBON DIOXIDE 23 mmol/L (22-30); CHLORIDE 107 mmol/L (98-107); CREATININE RESULT 1.05 mg/dL (0.52-1.25); GLUCOSE 166 mg/dL (75-110); POTASSIUM 4.5 mmol/L (3.6-5.0); SODIUM 137.6 mmol/L (137-145)
[2016-07-10] MEDS: LANSOPRAZOLE 15 MG TAB.RAP.DR PO SCH (07:00)
[2016-07-10] MEDS: HYDROCODONE/ACETAMINOPHEN 5-325 MG TABLET PO PRN ×3 (07:00→23:58)
[2016-07-10] MEDS: ENOXAPARIN SODIUM INJ 40 MG/0.4 ML DISP.SYRIN SUBCUT SCH (09:10)
[2016-07-10] MEDS: ASPIRIN 81 MG TABLET, ENT COATED PO SCH (09:11)
[2016-07-10] MEDS: DOCUSATE SODIUM 100 MG CAPSULE PO SCH (09:12)
[2016-07-10] MEDS: LEVOTHYROXINE SODIUM 0.075 MG TABLET PO SCH (09:12)
--- NOTE | 2016-07-10 16:24 | PDOC PROGRESS REPORT ---
Subjective Progress Note for:: 07/10/16 Subjective:: reason for today's visit: f/u hip and humeral fx hospital course: GORDON RUBIO is a 70 year old female presents to the ED from home via EMS after mechanical fall at home when she got her feet tangled up and tripped, falling hard onto her right side witih sudden pain in her hip and arm that prevented her from being able to stand or get herself up. witnessed the fall and denies head strike. states she was in her usual state of health prior to the event and no preceding chest pain, palpitations, dizziness, ASHLEY, vision changes, hearing changes, unilateral or generalized weakness, numbness or tingling. eval in the ED found Rt humeral compression/impaction type fracture and Rt intertrochanter fracture. Orthopedic surgeon consulted from the ED and asked that we admit anticipating surgery later today. She had a previous mechanical fall with ankle fracture requiring surgical repair and reports no post op complications from anesthesia, no difficulty awakening. she has no prior cardiac disease and no prior cardiac evaluation. she has excellent METS, does her own shopping, cooking, cleaning and yard work without dyspnea, chest pain or other cardiac symptoms. she has no underlying lung disease and is a never smoker. she is at low risk for perioperative cardiac event related to non vascular, low risk orthopedic surgery where the benefits of surgery outweigh the risks of not proceeding and both she and her indicate willingness to accept those risks and proceed. ortho took for surgical repair of hip with IM nailing and recommending conservative management of the humeral fx. she seems to have tolerated the procedure well. post op H/H did drop as expected and without alternate source for blood loss evident. H/H has stabilized. Subjective: c/o intense pain in her arm as before, no better and no different than before. hip pain is tolerable with current regimen. denies chest pain, fevers/ chills, N/V/D. ROS: per HPI plus a total of 10 systems reviewed, pertinent positives and negatives noted above, remaining systems negative. Physical Exam Vital Signs: Temp Pulse Resp BP Pulse Ox 98.4 F 83 12 126/53 H 97 07/10/16 11:41 07/10/16 11:41 07/10/16 11:41 07/10/16 11:41 07/10/16 11:41 Intake & Output 07/09/16 07/10/16 07/11/16 06:59 06:59 06:59 Intake Total 680 Output Total 175 Balance 505 EXAM GENERAL: NAD; well developed, well nourished; no obese; alert and oriented to person, place, time, situation HEENT: normocephalic, atraumatic; no conjunctival injection, no scleral icterus ; oral mucosa moist; RESPIRATORY: no accessory muscle use, no increased WOB, good air entry bilaterally; no wheezes, rales, rhonchi; no inspiratory crackles CARDIO: no JVD; RRR; no systolic murmur; no tachycardia GI: soft; nondistended; normal bowel sounds; VASCULAR: no pallor; 2+ radial pulse; normal capillary refill EXTREMITIES: no calf tender; no palpable cords in calf; no clubbing, cyanosis , pedal edema; wound c/d/i; Rt arm in sling PSYCH: normal affect, depressed mood, very tearful regarding her current situation SKIN: warm; moist; no petechiae; no telengectasias; no jaundice; no rash Results Laboratory Results: 07/10/16 06:05 07/10/16 06:05 07/10/16 07/10/16 06:05 06:05 WBC 8.6 RBC 2.78 L Hgb 8.3 L Hct 24.9 L MCV 90 MCH 29.7 MCHC 33.1 RDW 13.1 Plt Count 278 Seg Neutrophils % 64.0 Lymphocytes % 22.9 Monocytes % 9.0 Eosinophils % 3.8 Basophils % 0.3 Absolute Neutrophils 5.5 Absolute Lymphocytes 2.0 Absolute Monocytes 0.8 Absolute Eosinophils 0.3 Absolute Basophils 0.0 Sodium 137.6 Potassium 4.5 Chloride 107 Carbon Dioxide 23 Anion Gap 8 BUN 16 Creatinine 1.05 Est GFR ( Amer) > 60 Est GFR (Non-Af Amer) 52 L Glucose 166 H Calcium 9.0 Impressions: Shoulder X-Ray 07/05/16 21:29 IMPRESSION: Impaction type fracture of the proximal humerus. Humerus X-Ray 07/05/16 21:30 IMPRESSION: Impaction type fracture of the proximal humerus. Fluoroscopy 07/06/16 00:00 IMPRESSION: Please see combined report for performance of procedure and radiologic supervision and interpretation. Chest X-Ray 07/06/16 03:50 IMPRESSION: NO ACUTE RADIOGRAPHIC FINDING IN THE CHEST. Hip/Pelvis X-Ray 07/07/16 00:00 IMPRESSION: SATISFACTORY POSTOPERATIVE RIGHT HIP. Assessment & Plan - Diagnosis (1) Closed right hip fracture Qualifiers: Encounter type: initial encounter Qualified Code(s): S72.001A - Fracture of unspecified part of neck of right femur, initial encounter for closed fracture Is this a current diagnosis for this admission?: YesPlan: s/p surgical repair; awaiting placement in rehab when bed available. continue PT (2) Right humeral fracture Qualifiers: Encounter type: initial encounter Humerus Location: proximal Fracture type: closed Fracture morphology: other fracture Fracture alignment: nondisplaced Qualified Code(s): S42.294A - Other nondisplaced fracture of upper end of right humerus, initial encounter for closed fracture Is this a current diagnosis for this admission?: YesPlan: conservative management with immobilization and pain control (3) Diabetes Qualifiers: Diabetes mellitus type: type 2 Diabetes mellitus complication status: with neurologic complications Diabetes mellitus complication detail: with autonomic neuropathy Diabetes mellitus retirement insulin use: without retirement use Qualified Code(s): E11.43 - Type 2 diabetes mellitus with diabetic autonomic (poly)neuropathy; Z79.4 - [facility] (current) use of insulin Is this a current diagnosis for this admission?: Yes (4) HTN (hypertension) Qualifiers: Hypertension type: essential hypertension Qualified Code(s): I10 - Essential (primary) hypertension Is this a current diagnosis for this admission?: Yes (5) Hyperlipemia Qualifiers: Hyperlipidemia type: unspecified Qualified Code(s): E78.5 - Hyperlipidemia, unspecified Is this a current diagnosis for this admission?: Yes (6) Hypothyroidism Qualifiers: Hypothyroidism type: unspecified Qualified Code(s): E03.9 - Hypothyroidism, unspecified Is this a current diagnosis for this admission?: Yes (7) Fall Qualifiers: Encounter type: initial encounter Qualified Code(s): W19.XXXA - Unspecified fall, initial encounter Is this a current diagnosis for this admission?: Yes (8) Postoperative anemia Is this a current diagnosis for this admission?: Yes - Time Time Spent with patient: 15-24 minutes Anticipated discharge: Acute Rehab - Awaiting bed placement in [place]
[2016-07-10] MEDS: ATORVASTATIN CALCIUM 10 MG TABLET PO SCH (23:52)
[2016-07-10] MEDS: INSULIN LISPRO 100 UNIT/ML 3 ML VIAL SUBCUT PRN (23:57)
[2016-07-11] MEDS: ENOXAPARIN SODIUM INJ 40 MG/0.4 ML DISP.SYRIN SUBCUT SCH (08:22)
[2016-07-11] MEDS: TRAMADOL HCL 50 MG TABLET PO PRN ×2 (08:23→20:08)
[2016-07-11] MEDS: LEVOTHYROXINE SODIUM 0.075 MG TABLET PO SCH (09:18)
[2016-07-11] MEDS: ASPIRIN 81 MG TABLET, ENT COATED PO SCH (09:18)
[2016-07-11] MEDS: DOCUSATE SODIUM 100 MG CAPSULE PO SCH (09:18)
[2016-07-11] MEDS: HYDROCODONE/ACETAMINOPHEN 5-325 MG TABLET PO PRN ×2 (15:47→22:56)
--- NOTE | 2016-07-11 16:39 | PDOC PROGRESS REPORT ---
Subjective Progress Note for:: 07/11/16 Subjective:: Patient is complaining of some pain in the right shoulder otherwise no shortness of breath no chest pain No nausea vomiting no fever no chills Physical Exam Vital Signs: Temp Pulse Resp BP Pulse Ox 98.6 F 82 16 130/52 H 98 07/11/16 15:22 07/11/16 15:22 07/11/16 15:22 07/11/16 15:22 07/11/16 15:22 Intake & Output 07/10/16 07/11/16 07/12/16 00:59 00:59 00:59 Intake Total 1320 320 Output Total 475 375 Balance 845 -55 General appearance: PRESENT: no acute distress, other - She looks pale Head exam: PRESENT: atraumatic, normocephalic Eye exam: PRESENT: conjunctiva pale Neck exam: ABSENT: carotid bruit, JVD, lymphadenopathy, thyromegaly Respiratory exam: PRESENT: clear to auscultation lanette. ABSENT: rales, rhonchi, wheezes Cardiovascular exam: PRESENT: RRR. ABSENT: diastolic murmur, rubs, systolic murmur Extremities exam: PRESENT: full ROM. ABSENT: calf tenderness, clubbing, pedal edema Neurological exam: PRESENT: alert, awake, oriented to person, oriented to place , oriented to time, oriented to situation, CN II-XII grossly intact. ABSENT: motor sensory deficit Results Laboratory Results: 07/10/16 06:05 07/10/16 06:05 Impressions: Shoulder X-Ray 07/05/16 21:29 IMPRESSION: Impaction type fracture of the proximal humerus. Humerus X-Ray 07/05/16 21:30 IMPRESSION: Impaction type fracture of the proximal humerus. Fluoroscopy 07/06/16 00:00 IMPRESSION: Please see combined report for performance of procedure and radiologic supervision and interpretation. Chest X-Ray 07/06/16 03:50 IMPRESSION: NO ACUTE RADIOGRAPHIC FINDING IN THE CHEST. Hip/Pelvis X-Ray 07/07/16 00:00 IMPRESSION: SATISFACTORY POSTOPERATIVE RIGHT HIP. Assessment & Plan - Diagnosis (1) Anemia Qualifiers: Other causes of anemia: other cause, not classified Is this a current diagnosis for this admission?: YesPlan: Likely iron deficiency anemia we'll repeat labs in a.m. (2) Closed right hip fracture Qualifiers: Encounter type: initial encounter Qualified Code(s): S72.001A - Fracture of unspecified part of neck of right femur, initial encounter for closed fracture Is this a current diagnosis for this admission?: Yes (3) Diabetes Qualifiers: Diabetes mellitus type: type 2 Diabetes mellitus complication status: with neurologic complications Diabetes mellitus complication detail: with autonomic neuropathy Diabetes mellitus master rigger insulin use: without fdc use Qualified Code(s): E11.43 - Type 2 diabetes mellitus with diabetic autonomic (poly)neuropathy; Z79.4 - nursing home (current) use of insulin Is this a current diagnosis for this admission?: Yes (4) Fall Qualifiers: Encounter type: initial encounter Qualified Code(s): W19.XXXA - Unspecified fall, initial encounter Is this a current diagnosis for this admission?: Yes (5) HTN (hypertension) Qualifiers: Hypertension type: essential hypertension Qualified Code(s): I10 - Essential (primary) hypertension Is this a current diagnosis for this admission?: Yes (6) Right humeral fracture Qualifiers: Encounter type: initial encounter Humerus Location: proximal Fracture type: closed Fracture morphology: other fracture Fracture alignment: nondisplaced Qualified Code(s): S42.294A - Other nondisplaced fracture of upper end of right humerus, initial encounter for closed fracture Is this a current diagnosis for this admission?: Yes - Time Time Spent with patient: Patient is stable for transfer to rehabilitation in a.m. Time Spent with patient: 25-34 minutes - Patient
[2016-07-11] MEDS: LANSOPRAZOLE 15 MG TAB.RAP.DR PO SCH (20:09)
[2016-07-11] MEDS: ATORVASTATIN CALCIUM 10 MG TABLET PO SCH (22:49)
[2016-07-12] MEDS: LANSOPRAZOLE 15 MG TAB.RAP.DR PO SCH (05:29)
[2016-07-12 05:42] LABS: ABSOLUTE BASOPHILS # (AUTO) 0.1 10^3/uL (0.0-0.2); ABSOLUTE EOSINOPHILS # (AUTO) 0.5 10^3/uL (0.0-0.6); ABSOLUTE LYMPHOCYTES (AUTO) 2.5 10^3/uL (0.5-4.7); ABSOLUTE MONOCYTES (AUTO) 0.9 10^3/uL (0.1-1.4); ABSOLUTE NEUT (AUTO) 3.9 10^3/uL (1.7-8.2); BASOPHILS % (AUTO) 0.8 % (0-2); EOSINOPHILS % (AUTO) 6.9 % (0-6); HEMATOCRIT 26.5 % (36.0-47.0); HEMOGLOBIN 8.7 g/dL (12.0-15.5); HGB HCT DIFFERENCE -0.4; LYMPHOCYTES % (AUTO) 32.1 % (13-45); MEAN CORPUSCULAR HEMOGLOBIN 29.3 pg (27.0-33.4); MEAN CORPUSCULAR HGB CONC 32.9 g/dL (32.0-36.0); MEAN CORPUSCULAR VOLUME 89 fl (80-97); MONOCYTES % (AUTO) 11.7 % (3-13); RED BLOOD COUNT 2.96 10^6/uL (3.72-5.28); SEGMENTED NEUTROPHILS % (AUTO) 48.5 % (42-78); WHITE BLOOD COUNT 7.9 10^3/uL (4.0-10.5)
[2016-07-12] MEDS: HYDROCODONE/ACETAMINOPHEN 5-325 MG TABLET PO PRN ×3 (07:28→19:41)
[2016-07-12] MEDS: ENOXAPARIN SODIUM INJ 40 MG/0.4 ML DISP.SYRIN SUBCUT SCH (08:23)
[2016-07-12] MEDS: LEVOTHYROXINE SODIUM 0.075 MG TABLET PO SCH (09:47)
[2016-07-12] MEDS: ASPIRIN 81 MG TABLET, ENT COATED PO SCH (09:47)
[2016-07-12] MEDS: DOCUSATE SODIUM 100 MG CAPSULE PO SCH (09:48)
--- NOTE | 2016-07-12 10:37 | PDOC TRANSFER SUMMARY ---
General - Admit/Disc Date/PCP Admission Date/Primary Care Provider: 07/06/16 09:00 Discharge Date: 07/12/16 - Discharge Diagnosis (1) Anemia Is this a current diagnosis for this admission?: YesSummary: anemia of chronic disease and iron deficiency added ferrous sulfate 325 mg daily for one month (2) Closed right hip fracture Is this a current diagnosis for this admission?: YesSummary: underwent surgery Dr Danae kebede surgical report DATE OF SURGERY: 07/06/16 PREOPERATIVE DIAGNOSIS: #1 Right intertrochanteric hip fracture. #2 Right proximal humerus fracture POSTOPERATIVE DIAGNOSIS: Same OPERATION: Cephalo-medullary nailing of right hip fracture SURGEON: TORSTEN COOK ANESTHESIA: GA TISSUE REMOVED OR ALTERED: None COMPLICATIONS: None ESTIMATED BLOOD LOSS: 50 mL INTRAOPERATIVE FINDINGS: As above PROCEDURE: Patient was seen and evaluated in the preoperative holding area. The right lower extremity was initialized and marked. Patient received 2 g Ancef IV for bacterial prophylaxis. Patient was taken back to the operative room where transferred operative table. Patient was placed under spinal anesthesia. Once adequate anesthetized he was carefully placed onto the hip positioner the nonoperative lower extremity and bilateral upper extremities were carefully padded and the peroneal nerve was padded and on the nonoperative extremity. The operative extremity was placed in a traction along with adduction and internal rotation. A surgical team debriefing was performed ensuring all instrumentation was available, the surgical procedure was discussed with possible concerns reviewed. A timeout was done identifying correct patient, procedure and extremity everyone in attendance agree with this and verbalized no concerns. Reduction maneuver with the use of the hip traction table were done and C-arm fluoroscopy was used to confirm optimal reduction of the intertrochanteric fracture. Once this was confirmed the lower extremity was prepped with chlor prep and draped in a sterile fashion. At this point a small skin incision was made proximal to the greater trochanter. The guidewire was placed onto the tip of the trochanter advanced down to the level of the lesser trochanter. AP and lateral fluoroscopy was used to confirm appropriate placement of the guidewire. The skin incision was then extended and the underlying fascia opened up carefully to the tip of the greater trochanter. The entry reamer was then used and advanced to the level of the lesser trochanter. At this point [place] short gamma nail was opened up and placed onto the aiming arm and advanced down the shaft of the femur. AP and lateral fluoroscopy was then used to confirm appropriate placement of the nail. Then turned my attention to the compression screw fixation in the femoral head. The trochars were advanced to the skin, a skin incision was made, careful dissection down to the fascia to the lateral femoral cortex was then partaken. The guidewire was then used and placed in the center center position with the tip apex distance less than 25 mm. Once this position was obtained the size of the compression screw was measured. AP and lateral fluoroscopy used to confirm appropriate placement of our guide wire. The step reamer was used to drill up through the femoral neck and head. I then carefully advanced the compression screw into position. AP and lateral fluoroscopy was done to confirm appropriate placement of the compression screw this was then locked into position proximally. The compression screw was then disengaged from its mounting device and the guidewire was removed. Lastly proceeded with locking of the nail distally. Using the aiming arm the trochars were advanced to the skin, a skin incision was made. Careful dissection done with a hemostat to the lateral cortex of the femur. I then drilled the near and far cortices. Measured the appropriate sized distal locking screw and secured it into position. At this point AP/lateral and oblique views of the proximal and distal aspect of the nail were taken confirming appropriate placement of the compression screw, distal locking screw and intramedullary nail. Once this was confirmed I proceeded with copious irrigation of the proximal and distal wounds. The deep tissues were closed with 0 Vicryl suture, subcutaneous tissues and dermis were closed with 2-0 Vicryl. The skin was closed frankie. A dressing was placed. Sponge counts, instrument counts and needle counts were correct. Patient was then transferred from the operating room table to the operating room stretcher. The was no intraoperative complications patient tolerated procedure well was stable to PACU. Implants used: [place] 11 x 180 mm 130 Short Gamma Nail with a 95 mm compression screw Postoperative plan: Patient will begin physical therapy on postop day #1 with Xarelto daily. Course was uneventful Patient to continue physical therapy (3) Diabetes Is this a current diagnosis for this admission?: YesSummary: 07/11/16 07/11/16 07/11/16 07:04 11:33 16:17 POC Glucose 145 H 162 H 192 H 07/11/16 07/12/16 22:52 07:31 POC Glucose 210 H 161 H patient was covered with insulin sliding scale at discharge patients previous meds were resumed -invonkamet continue diabetic diet check fasting blood sugars and 4 pm blood sugars for 1 week (4) Fall Is this a current diagnosis for this admission?: Yes (5) HTN (hypertension) Is this a current diagnosis for this admission?: YesSummary: blood pressure controlled (6) Right humeral fracture Is this a current diagnosis for this admission?: YesSummary: keep right arm in a sling - Additional Information Resuscitation Status: Full Code Home Medications: Amlodipine Besylate [Norvasc 5 mg Tablet] 5 mg PO DAILY 07/06/16 Aspirin [Adult Low Dose Aspirin EC] 81 mg PO DAILY 07/06/16 Atorvastatin Calcium [Lipitor 10 mg Tablet] 5 mg PO QHS 07/06/16 Benazepril HCl [Lotensin 20 mg Tablet] 20 mg PO DAILY 07/06/16 Canagliflozin/Metformin HCl [Invokamet 50-1,000 mg Tablet] 2 tab PO DAILY Fenofibrate Nanocrystallized [Tricor 48 mg Tablet] 96 mg PO DAILY 07/06/16 Levothyroxine Sodium [Synthroid 0.075 mg Tablet] 75 mcg PO DAILY 07/06/16 Omeprazole 40 mg PO DAILY 07/06/16 Ferrous Sulfate 324 mg PO DAILY #30 tablet. 07/12/16 Hydrocodone/Acetaminophen [[place] 5-325 mg Tablet] 1 tab PO Q4HP PRN #30 tablet 07/12/16 Polyethylene Glycol 3350 [Miralax Powder 17 gm/Packet] 1 packet PO QHS #30 pkg 07/12/16 History of Present Illness Admission Date/PCP: 07/06/16 09:00 Patient complains of: fall. fracture right hip/ right arm History of Present Illness: presents to the ED from home via EMS after mechanical fall at home when she got her feet tangled up and tripped, falling hard onto her right side witih sudden pain in her hip and arm that prevented her from being able to stand or get herself up. witnessed the fall and denies head strike. states she was in her usual state of health prior to the event and no preceding chest pain, palpitations, dizziness, ASHLEY, vision changes, hearing changes, unilateral or generalized weakness, numbness or tingling. eval in the ED found Rt humeral compression/impaction type fracture and Rt intertrochanter fracture. Orthopedic surgeon consulted from the ED and asked that we admit anticipating surgery later today. She had a previous mechanical fall with ankle fracture requiring surgical repair and reports no post op complications from anesthesia, no difficulty awakening. she has no prior cardiac disease and no prior cardiac evaluation. she has excellent METS, does her own shopping, cooking, cleaning and yard work without dyspnea, chest pain or other cardiac symptoms. she has no underlying lung disease and is a never smoker. she is at low risk for perioperative cardiac event related to non vascular, low risk orthopedic surgery where the benefits of surgery outweigh the risks of not proceeding and both she and her indicate willingness to accept those risks and proceed. Hospital Course Hospital Course: see above Physical Exam Vital Signs: Temp Pulse Resp BP Pulse Ox 98.5 F 72 12 147/63 H 100 07/12/16 08:09 07/12/16 08:09 07/12/16 08:09 07/12/16 08:09 07/12/16 08:09 Intake & Output 07/11/16 07/12/16 07/13/16 00:59 00:59 00:59 Intake Total 1320 1870 180 Output Total 475 775 Balance 845 1095 180 General appearance: PRESENT: no acute distress, thin, other - very pale Head exam: PRESENT: atraumatic, normocephalic Eye exam: PRESENT: conjunctiva pink, EOMI, PERRLA. ABSENT: scleral icterus Ear exam: PRESENT: normal external ear exam Mouth exam: PRESENT: moist, tongue midline Neck exam: ABSENT: carotid bruit, JVD, lymphadenopathy, thyromegaly Respiratory exam: PRESENT: clear to auscultation lanette. ABSENT: rales, rhonchi, wheezes Cardiovascular exam: PRESENT: RRR. ABSENT: diastolic murmur, rubs, systolic murmur Pulses: PRESENT: normal dorsalis pedis pul Vascular exam: PRESENT: normal capillary refill GI/Abdominal exam: PRESENT: normal bowel sounds, soft. ABSENT: distended, guarding, mass, organolmegaly, rebound, tenderness Rectal exam: PRESENT: deferred Extremities exam: PRESENT: full ROM, other - Right upper extremity in sling. ABSENT: calf tenderness, clubbing, pedal edema Neurological exam: PRESENT: alert, awake, oriented to person, oriented to place , oriented to time, oriented to situation, CN II-XII grossly intact. ABSENT: motor sensory deficit Psychiatric exam: PRESENT: appropriate affect, normal mood. ABSENT: homicidal ideation, suicidal ideation Skin exam: PRESENT: dry, intact, warm. ABSENT: cyanosis, rash Results Laboratory Results: 07/12/16 05:26 07/10/16 06:05 07/12/16 07/12/16 05:26 05:26 WBC 7.9 RBC 2.96 L Hgb 8.7 L Hct 26.5 L MCV 89 MCH 29.3 MCHC 32.9 RDW 13.0 Plt Count 390 Seg Neutrophils % 48.5 Lymphocytes % 32.1 Monocytes % 11.7 Eosinophils % 6.9 H Basophils % 0.8 Absolute Neutrophils 3.9 Absolute Lymphocytes 2.5 Absolute Monocytes 0.9 Absolute Eosinophils 0.5 Absolute Basophils 0.1 Iron 37.9 TIBC 302 % Saturation 13 Ferritin 53.90 Vitamin B12 706.0 EKG Comments: SINUS RHYTHM [T0NS] . BORDERLINE T WAVE ABNORMALITIES Impressions: Shoulder X-Ray 07/05/16 21:29 IMPRESSION: Impaction type fracture of the proximal humerus. Humerus X-Ray 07/05/16 21:30 IMPRESSION: Impaction type fracture of the proximal humerus. Fluoroscopy 07/06/16 00:00 IMPRESSION: Please see combined report for performance of procedure and radiologic supervision and interpretation. Chest X-Ray 07/06/16 03:50 IMPRESSION: NO ACUTE RADIOGRAPHIC FINDING IN THE CHEST. Hip/Pelvis X-Ray 07/07/16 00:00 IMPRESSION: SATISFACTORY POSTOPERATIVE RIGHT HIP. Transfer Plan - Disposition Transfer Plan: transfer to short term rehab advise repeat CBC in 1 week - Time Spent with Patient Time spent with patient: Greater than 30 Minutes
[2016-07-12] MEDS: INSULIN LISPRO 100 UNIT/ML 3 ML VIAL SUBCUT PRN ×2 (12:20→16:55)
[2016-07-12 17:31] VITALS: BP 121/49
[2016-07-12] MEDS: ATORVASTATIN CALCIUM 10 MG TABLET PO SCH (21:05)
== END 2016-07-12 21:15 | DRG 481 ==
LOC: ER 21:09 → EH 07-06 08:47 → UNDOADMIN 07-06 08:47 → EH 07-06 09:00 → 4N 07-06 09:45
PROVIDERS: ADMIT Family Medicine; ATTEND Family Medicine
PROC: 0QS636Z Reposition Right Upper Femur with Intramedullary Internal Fixation Device, Percutaneous Approach (ICD-10-PCS; principal; 2016-07-06 15:00)
DX: S72.141A Displaced intertrochanteric fracture of right femur, initial encounter for closed fracture (principal); S42.201A Unspecified fracture of upper end of right humerus, initial encounter for closed fracture; W18.39XA Other fall on same level, initial encounter; Y92.009 Unspecified place in unspecified non-institutional (private) residence as the place of occurrence of the external cause; E11.43 Type 2 diabetes mellitus with diabetic autonomic (poly)neuropathy; E78.5 Hyperlipidemia, unspecified; I10 Essential (primary) hypertension; E03.9 Hypothyroidism, unspecified; D50.9 Iron deficiency anemia, unspecified; M19.90 Unspecified osteoarthritis, unspecified site; Z87.81 Personal history of (healed) traumatic fracture; Z88.6 Allergy status to analgesic agent; Z88.2 Allergy status to sulfonamides; Z82.49 Family history of ischemic heart disease and other diseases of the circulatory system; Z83.3 Family history of diabetes mellitus; Z88.8 Allergy status to other drugs, medicaments and biological substances; Z79.82 Long term (current) use of aspirin
CPT/HCPCS: 01230; 36415; 51701; 71010; 80048; 80053; 81001; 82607; 82728; 82962; 83540; 83550; 85025; 85610; 85730; 93005; 93010; 94799; 96374; 96376; 99285; C1713; G8978-GP; G8979-GP; G8987-GO; G8988-GO; J0330; J0690; J1100; J1170; J1650; J1815; J2250; J2270; J2370; J2405; J2704; J3010; J3490; J7120; S0119

== ENCOUNTER 2018-08-30 22:07 | Emergency (ER) | payer MEDICARE ==
--- NOTE | 2018-08-30 23:03 | RADIOLOGY REPORT (SQ) ---
EXAM DESCRIPTION: XR CHEST 1 VIEW COMPLETED DATE/TME: 08/30/2018 00:00 CLINICAL HISTORY: PRE-OP COMPARISON: July 06, 2016 FINDINGS: Cardiac silhouette is within normal limits. Patient is rotated. Opacity at the lower mediastinum is unchanged compared with the prior exam and could represent a hiatal hernia. There is no focal parenchymal or pleural disease. There is no acute osseous process visualized. IMPRESSION: No evidence of acute cardiopulmonary disease.
[2018-08-30] MEDS ORDERED: ONDANSETRON HCL INJ/PF 4 MG/2 ML SDV IV ONE (23:07)
[2018-08-30] MEDS ORDERED: HYDROMORPHONE HCL INJ/PF 2 MG/ML AMPULE IV ONE (23:07)
--- NOTE | 2018-08-30 23:12 | RADIOLOGY REPORT (SQ) ---
EXAM DESCRIPTION: XR HIP 2 OR MORE VIEWS COMPLETED DATE/TME: 08/30/2018 22:15 CLINICAL HISTORY: 72 years Female fall hip pain COMPARISON: None. TECHNIQUE: Single AP view of the pelvis and two views left hip. FINDINGS: TFN transfixing the right hip. There is a fracture of the left femoral neck with superior and lateral displacement of the distal fracture fragment. IMPRESSION: Acute left femoral neck fracture with mild superior and lateral displacement of the distal fracture fragment
--- NOTE | 2018-08-30 23:20 | RADIOLOGY REPORT (SQ) ---
EXAM DESCRIPTION: CT HEAD WITHOUT IV CONTRAST COMPLETED DATE/TME: 08/30/2018 00:00 : CLINICAL HISTORY: 72 years Female fall head injury COMPARISON: None. TECHNIQUE: Contiguous axial CT images obtained through the brain without IV contrast. This exam was performed according to our department optimization program which includes automated exposure control, adjustment of the mA and/or kv according to patient size and/or use of iterative reconstruction technique. FINDINGS: The ventricles and sulci are prominent consistent with atrophic changes. No mass lesions. No acute hemorrhage. Atherosclerotic calcifications. No fluid or significant mucosal thickening in the visualized paranasal sinuses. No depressed calvarial fractures. IMPRESSION: No acute intracranial abnormality is identified.
[2018-08-30 23:49] LABS: ABSOLUTE EOSINOPHILS # (AUTO) 0.5 10^3/uL (0.0-0.6); ABSOLUTE MONOCYTES (AUTO) 0.7 10^3/uL (0.1-1.4); ABSOLUTE NEUT (AUTO) 6.6 10^3/uL (1.7-8.2); BASOPHILS % (AUTO) 0.5 % (0-2); EOSINOPHILS % (AUTO) 4.7 % (0-6); HEMATOCRIT 29.7 % (36.0-47.0); HEMOGLOBIN 9.8 g/dL (12.0-15.5); LYMPHOCYTES % (AUTO) 20.2 % (13-45); MEAN CORPUSCULAR HEMOGLOBIN 29.8 pg (27.0-33.4); MEAN CORPUSCULAR HGB CONC 32.9 g/dL (32.0-36.0); MEAN CORPUSCULAR VOLUME 91 fl (80-97); MONOCYTES % (AUTO) 7.5 % (3-13); PLATELET COUNT 399 10^3/uL (150-450); RED BLOOD COUNT 3.28 10^6/uL (3.72-5.28); RED CELL DISTRIBUTION WIDTH 12.9 % (11.5-14.0); SEGMENTED NEUTROPHILS % (AUTO) 67.1 % (42-78); TOTAL CELLS COUNTED % (AUTO) 100 %; WHITE BLOOD COUNT 9.8 10^3/uL (4.0-10.5)
[2018-08-30 23:52] LABS: PROTHROMBIN TIME 13.7 SEC (11.4-15.4)
[2018-08-31 00:04] LABS: ALANINE AMINOTRANSFERASE 33 U/L (9-52); ALBUMIN 3.3 g/dL (3.5-5.0); ALKALINE PHOSPHATASE 42 U/L (38-126); ANION GAP 10 (5-19); ASPARTATE AMINO TRANSFERASE 24 U/L (14-36); BILIRUBIN,DIRECT 0.3 mg/dL (0.0-0.4); BILIRUBIN,TOTAL 0.3 mg/dL (0.2-1.3); BLOOD UREA NITROGEN 26 mg/dL (7-20); CALCIUM 9.5 mg/dL (8.4-10.2); CARBON DIOXIDE 25 mmol/L (22-30); CHLORIDE 103 mmol/L (98-107); GLUCOSE 228 mg/dL (75-110); POTASSIUM 4.4 mmol/L (3.6-5.0); SODIUM 137.7 mmol/L (137-145); TOTAL PROTEIN 6.1 g/dL (6.3-8.2)
[2018-08-31 00:15] LABS: APPEARANCE,URINE CLEAR; BILIRUBIN,URINE NEGATIVE (NEGATIVE); COLOR,URINE YELLOW; GLUCOSE, URINE 50 mg/dL (NEGATIVE); KETONES,URINE NEGATIVE (NEGATIVE); LEUKOCYTE ESTERASE,URINE NEGATIVE (NEGATIVE); NITRITE,URINE NEGATIVE (NEGATIVE); PROTEIN,URINE 100 mg/dL (NEGATIVE); URINE SPECIFIC GRAVITY 1.012; UROBILINOGEN,URINE NEGATIVE mg/dL (<2.0)
[2018-08-31] MEDS ORDERED: HYDROMORPHONE HCL INJ/PF 2 MG/ML AMPULE IV ONE ×2 (00:15→02:40)
[2018-08-31] MEDS ORDERED: NORMAL SALINE 1000 ML 1,000 ML IV ONE (00:16)
--- NOTE | 2018-08-31 00:42 | ER Document Report ---
ED General - General Chief Complaint: Facial Injury Stated Complaint: FALL,LEFT HIP PAIN Time Seen by Provider: 08/30/18 22:48 TRAVEL OUTSIDE OF THE [place] IN LAST 30 DAYS: No - HPI Notes: Patient is a 72-year-old female presents emergency department for evaluation after a fall. She was getting up to change the TV channel. She was walked back and she states her leg collapsed underneath her. She did hit her head on hardwood floor. She denies any loss of consciousness. No neck or back pain. She does complain of pain in her left inguinal region and hip. She states she does take a baby aspirin daily but denies any other blood thinners. She does have a history of a right hip fracture, which felt similar, repaired 2 years ago. - Related Data Allergies/Adverse Reactions: diazepam [From Valium] Allergy (Verified 07/05/16 21:30) Sulfa (Sulfonamide Antibiotics) Allergy (Verified 07/10/16 01:59) codeine Adverse Reaction (Verified 07/10/16 01:59) Nausea Past Medical History - Social History Smoking Status: Never Smoker Chew tobacco use (# tins/day): No Drug Abuse: None Family History: Reviewed & Not Pertinent, CAD, DM Patient has suicidal ideation: No Patient has homicidal ideation: No - Past Medical History Cardiac Medical History: Reports: Hx Hypercholesterolemia, Hx Hypertension Denies: Hx Congestive Heart Failure, Hx Heart Attack Endocrine Medical History: Reports: Hx Diabetes Mellitus Type 2, Hx Hypothyroidism Renal/ Medical History: Denies: Hx Peritoneal Dialysis Musculoskeletal Medical History: Reports Hx Arthritis Past Surgical History: Reports: Hx Orthopedic Surgery - right hip - Immunizations Hx Diphtheria, Pertussis, Tetanus Vaccination: Yes Review of Systems - Review of Systems Constitutional: No symptoms reported EENT: No symptoms reported Cardiovascular: No symptoms reported Respiratory: No symptoms reported Gastrointestinal: No symptoms reported Genitourinary: No symptoms reported Musculoskeletal: See HPI Skin: No symptoms reported Neurological/Psychological: No symptoms reported Physical Exam - Vital signs Vitals: Temp Pulse Resp BP Pulse Ox 98.3 F 87 16 123/60 93 08/30/18 22:15 08/30/18 22:15 08/30/18 22:15 08/30/18 22:15 08/30/18 22:15 - Notes Notes: Vital signs reviewed, please refer to chart. Head is normocephalic. Mild tenderness over the right posterior occiput without any appreciated hematoma, no skin break. Pupils equal round, reactive to light. Neck is supple without meningismus. Heart is regular rate and rhythm. Lungs are clear to auscultation bilaterally. Abdomen is soft, nontender, normoactive bowel sounds throughout. Extremities without cyanosis, clubbing. Left lower extremity is shortened and externally rotated consistent with femoral neck fracture. Neurovascularly intact distally. Examination of the spine yields no midline tenderness step-off no paraspinal musculature tenderness appreciated peripheral pulses are equal. Skin is warm and dry. Patient is awake, alert, x3. Cranial nerves II through XII are grossly intact without focal neurological deficits. Strength was 5 out of 5 upper and right lower extremities. Sensation is intact. Intact [id number] and rapid altering movements. Course - Re-evaluation Re-evalutation: 08/31/18 00:40 Patient is a 72-year-old female who presents emergency department after a fall. She has an obvious left hip fracture. The remainder the patient's work-up field no significant abnormalities, with the exception of a mildly elevated creatinine. V fluids started. EKG is unchanged. Patient was medicated multiple times here for pain. She did become slightly hypoxic after a milligram of Dilaudid, given in separate doses, and was placed on oxygen. Aguilera catheter placed. Unfortunately we do not have any orthopedic surgeons photonics technician. Her primary care physician is in [place]. Will contact [facility] for potential transfer. 08/31/18 00:43 08/31/18 01:[address] Chance, orthopedic surgeon at [facility]. He happily excepted the patient in transfer. - Vital Signs Vital signs: Temp Pulse Resp BP Pulse Ox 99.7 F 87 21 H 136/63 H 92 08/31/18 01:01 08/30/18 22:15 08/31/18 01:01 08/31/18 01:01 08/31/18 01:01 - Laboratory Result Diagrams: 08/30/18 23:31 08/30/18 23:31 Laboratory results interpreted by me: 08/30/18 08/30/18 08/30/18 23:31 23:31 23:53 RBC 3.28 L Hgb 9.8 L Hct 29.7 L BUN 26 H Creatinine 1.67 H Est GFR ( Amer) 36 L Est GFR (Non-Af Amer) 30 L Glucose 228 H Total Protein 6.1 L Albumin 3.3 L Urine Protein 100 H Urine Glucose (UA) 50 H - Diagnostic Test Radiology reviewed: Reports reviewed Radiology results interpreted by me: 08/31/18 00:41 Chest X-Ray 08/30/18 00:00 IMPRESSION: No evidence of acute cardiopulmonary disease. Head CT 08/30/18 00:00 IMPRESSION: No acute intracranial abnormality is identified. Hip X-Ray 08/30/18 22:15 IMPRESSION: Acute left femoral neck fracture with mild superior and lateral displacement of the distal fracture fragment - EKG Interpretation by Me Additional EKG results interpreted by me: 08/31/18 00:41 Sinus mechanism with a rate of 75 bpm. Normal axis and intervals. Nonspecific lateral T wave flattening, no acute changes concerning for ischemia or infarction. No significant change when compared to prior study of July 16, 2016. Discharge - Discharge Clinical Impression: Left displaced femoral neck fracture Condition: Stable Disposition: [facility] Admitting Provider: Dr. Chance
[2018-08-31 02:22] VITALS: BP 142/62
--- NOTE | 2018-08-31 11:13 | EKG REPORT ---
SEVERITY:- BORDERLINE ECG - SINUS RHYTHM BORDERLINE T WAVE ABNORMALITIES : Confirmed by: Silvana Carmichael 31-Aug-2018 11:12:57
== END 2018-08-31 02:03 | disposition short-term general hospital (02) ==
LOC: ER 22:07
DX: S72.002A Fracture of unspecified part of neck of left femur, initial encounter for closed fracture (principal); S09.90XA Unspecified injury of head, initial encounter; W01.10XA Fall on same level from slipping, tripping and stumbling with subsequent striking against unspecified object, initial encounter; Y92.009 Unspecified place in unspecified non-institutional (private) residence as the place of occurrence of the external cause; Z88.2 Allergy status to sulfonamides; Z88.6 Allergy status to analgesic agent; E78.00 Pure hypercholesterolemia, unspecified; I10 Essential (primary) hypertension; E11.9 Type 2 diabetes mellitus without complications; E03.9 Hypothyroidism, unspecified
CPT/HCPCS: 93005; 96376; 99285; 96361; 51702; 96374; 96375; 36415; 85025; 85610; 85730; 80053; 81001; 71045; 73502; 70450; 93010; J1170 ×2; J2405; J7030

== ENCOUNTER 2019-06-24 10:23 | Emergency (ER) | payer MEDICARE ==
--- NOTE | 2019-06-24 10:45 | ER Document Report ---
ED General - General Chief Complaint: Fall Stated Complaint: FALL/SIDE PAIN Time Seen by Provider: 06/24/19 10:44 Mode of Arrival: Wheelchair Information source: Patient, Relative Notes: Patient is a 73-year-old female presenting to the emergency department chief complaint of right hip and knee pain status post fall. Patient states she was walking between rooms yesterday had to go up 2 stairs and slipped and fell. Patient states she has had prior issues with falls as well as prior issues with injury to the lower extremities. Patient denies chest pain shortness of breath palpitations or dizziness prior to the fall. TRAVEL OUTSIDE OF THE [place] IN LAST 30 DAYS: No - HPI Onset: Yesterday Onset/Duration: Sudden Quality of pain: Throbbing Severity: Moderate Pain Level: 4 Associated symptoms: None Exacerbated by: Movement Relieved by: Denies Similar symptoms previously: Yes Recently seen / treated by doctor: No - Related Data Allergies/Adverse Reactions: diazepam [From Valium] Allergy (Verified 07/05/16 21:30) Sulfa (Sulfonamide Antibiotics) Allergy (Verified 07/10/16 01:59) codeine Adverse Reaction (Verified 07/10/16 01:59) Nausea Past Medical History - General Information source: Patient, Relative, [facility] Records - Social History Smoking Status: Unknown if Ever Smoked Frequency of alcohol use: None Drug Abuse: None Lives with: Spouse/Significant other Family History: Reviewed & Not Pertinent, CAD, DM Patient has suicidal ideation: No Patient has homicidal ideation: No - Past Medical History Cardiac Medical History: Reports: Hx Hypercholesterolemia, Hx Hypertension Denies: Hx Congestive Heart Failure, Hx Heart Attack Endocrine Medical History: Reports: Hx Diabetes Mellitus Type 2, Hx Hypothyroidism Renal/ Medical History: Denies: Hx Peritoneal Dialysis Musculoskeletal Medical History: Reports Hx Arthritis Past Surgical History: Reports: Hx Orthopedic Surgery - right hip - Immunizations Hx Diphtheria, Pertussis, Tetanus Vaccination: Yes Review of Systems - Review of Systems Notes: REVIEW OF SYSTEMS: CONSTITUTIONAL : Denies fever, chills, or sweats. Denies recent illness. EENT: Denies eye, ear, throat, or mouth pain or symptoms. Denies nasal or sinus congestion. CARDIOVASCULAR: Denies chest pain. RESPIRATORY: Denies cough, cold, or chest congestion. Denies shortness of breath, difficulty breathing, or wheezing. GASTROINTESTINAL: Denies abdominal pain. Denies nausea, vomiting, or diarrhea. Denies constipation. GENITOURINARY: Denies difficulty urinating, painful urination, burning, frequency, or blood in urine. MUSCULOSKELETAL: Per HPI SKIN: Denies rash or skin lesions. HEMATOLOGIC : Denies easy bruising or bleeding. NEUROLOGICAL: Denies altered mental status or loss of consciousness. Denies headache. Denies weakness or paralysis or loss of use of either side. Denies problems with gait or speech. Denies sensory or motor loss. PSYCHIATRIC: Denies suicidal or homicidal ideations 10 Systems are negative unless otherwise specified above Physical Exam - Vital signs Vitals: Temp Pulse Resp BP Pulse Ox 98.4 F 75 16 153/58 H 99 06/24/19 10:37 06/24/19 10:37 06/24/19 10:37 06/24/19 10:37 06/24/19 10:37 - Notes Notes: PHYSICAL EXAMINATION: GENERAL: Well-appearing, well-nourished and in no acute distress. HEAD: Atraumatic, normocephalic. EYES: Pupils equal round and reactive to light, extraocular movements intact, sclera anicteric, conjunctiva are normal. ENT: nares patent, oropharynx clear without exudates. Moist mucous membranes. NECK: Normal range of motion, supple without lymphadenopathy, no appreciable JVD LUNGS: Lungs clear to auscultation bilaterally and equal. No wheezes rales or rhonchi. HEART: Regular rate and rhythm without murmurs ABDOMEN: Soft, nontender, normal bowel sounds. No guarding, no rebound. No masses appreciated. EXTREMITIES: Patient has limitation of range of motion at the right hip and right knee secondary to pain with and without palpation sensations intact patient is able to move the lower extremity but it is painful. There is no obvious crepitus. NEUROLOGICAL: No focal neurological deficits. Moves all extremities spontaneously and on command. SKIN: Warm, Dry, and intact. Normal turgor, no rashes or lesions noted. Course - Re-evaluation Re-evalutation: 06/24/19 12:19 On reevaluation patient is resting comfortably in hospital bed x-ray results of knee and right hip were read by radiology as negative however patient still has exquisite pain to the right hip with her age and prior repair for hip fracture I feel most appropriate to have the patient CAT scan to rule out occult fracture. 06/24/19 13:32 Repeat exam patient is resting comfortably in hospital bed CT of the right hip is read as negative by radiology. The patient is informed of same and will be discharged home in stable condition. - Vital Signs Vital signs: Temp Pulse Resp BP Pulse Ox 98.4 F 75 16 153/58 H 99 06/24/19 10:37 06/24/19 10:37 06/24/19 10:37 06/24/19 10:37 06/24/19 10:37 - Laboratory Laboratory results interpreted by me: 06/24/19 10:51 POC Glucose 202 H Discharge - Discharge Clinical Impression: Accidental fall Qualifiers: Encounter type: initial encounter Qualified Code(s): W19.XXXA - Unspecified fall, initial encounter Contusion, hip Qualifiers: Encounter type: initial encounter Laterality: right Qualified Code(s): S70.01XA - Contusion of right hip, initial encounter Condition: Stable Disposition: HOME, SELF-CARE Additional Instructions: Contusion Your injury has resulted in a contusion -- a crushing of the deep tissues. No injury to important structures was detected during the physician's exam. Contusions vary in the amount of pain they cause, and in the length of time required for healing. Typically, the area will become bruised, and will remain painful to touch for two or three weeks. However, most patients are back to working and playing within a few days. After the initial period of rest and cold-packs, your symptoms (together with the doctor's recommendations) will determine how rapidly you can get back to full activity. Usually this means "do what feels okay, but don't do things that hurt." If re-examination was recommended, it's important to follow up as instructed. Call the doctor or return any time if pain increases, if swelling becomes severe, if you develop numbness or weakness in an injured extremity, or if any other alarming symptoms occur.
[2019-06-24] MEDS ORDERED: HYDROCODONE/ACETAMINOPHEN 5-325 MG TABLET PO ONE (10:59)
[2019-06-24] MEDS ORDERED: ONDANSETRON 4 MG TAB.RAPDIS PO ONE (10:59)
--- NOTE | 2019-06-24 12:04 | RADIOLOGY REPORT (SQ) ---
EXAM DESCRIPTION: KNEE RIGHT 3 VIEWS COMPLETED DATE/TIME: 06/24/2019 11:30 am REASON FOR STUDY: trauma COMPARISON: None. NUMBER OF VIEWS: Three views. TECHNIQUE: AP, lateral, and sunrise patella radiographic images acquired of the right knee. LIMITATIONS: None. FINDINGS: MINERALIZATION: Normal. BONES: No acute fracture or dislocation. No worrisome bone lesions. JOINT: Possible faint chondrocalcinosis. No effusion. SOFT TISSUES: No soft tissue swelling. No radio-opaque foreign body. OTHER: No other significant finding. IMPRESSION: NEGATIVE STUDY OF THE RIGHT KNEE. NO RADIOGRAPHIC EVIDENCE OF ACUTE INJURY. TECHNICAL DOCUMENTATION: JOB ID: [id number] 2010 [employer]- All Rights Reserved Reading location - IP/workstation name: [email or web address]
--- NOTE | 2019-06-24 12:06 | RADIOLOGY REPORT (SQ) ---
EXAM DESCRIPTION: HIP RIGHT AP/LATERAL COMPLETED DATE/TIME: 06/24/2019 11:30 am REASON FOR STUDY: trauma COMPARISON: 08/30/2018. NUMBER OF VIEWS: Two views. TECHNIQUE: AP pelvis and additional frog-leg view of the right hip. LIMITATIONS: None. FINDINGS: MINERALIZATION: Normal. RIGHT HIP: No fracture or dislocation. Intact hardware. No worrisome bone lesions. LEFT HIP: Intact prosthesis. PUBIS AND ISCHIUM: No fracture. PELVIS: No fracture. SACRUM: No fracture or dislocation. No worrisome bone lesions. LOWER LUMBAR SPINE: No fracture or dislocation. No worrisome bone lesions. No significant disc disea se. SOFT TISSUES: No findings. OTHER: No other significant finding. IMPRESSION: NEGATIVE STUDY OF THE RIGHT HIP. NO RADIOGRAPHIC EVIDENCE OF ACUTE INJURY. TECHNICAL DOCUMENTATION: JOB ID: [id number] 2010 [employer]- All Rights Reserved Reading location - IP/workstation name: [email or web address]
--- NOTE | 2019-06-24 13:15 | RADIOLOGY REPORT (SQ) ---
EXAM DESCRIPTION: CT RT LOWER EXTREMITY WITHOUT COMPLETED DATE/TIME: 06/24/2019 1:04 pm REASON FOR STUDY: right hip pain s/p fall COMPARISON: None. TECHNIQUE: CT scan of the right hip performed without intravenous or oral contrast. Images reviewed with soft tissue and bone windows. Reconstructed coronal and sagittal MPR images reviewed. All soren ges stored on PACS. All CT scanners at this facility use dose modulation, iterative reconstruction, and/or weight based d osing when appropriate to reduce radiation dose to as low as reasonably achievable (ALARA). [facility]: Dose Right [facility]: CareDose [facility]: Dose Right [facility]: Teradose 4D [facility]: [employer] RADIATION DOSE: CT Rad equipment meets quality standard of care and radiation dose reduction techniq ues were employed. CTDIvol: 12.3 mGy. DLP: 411 mGy-cm. mGy. LIMITATIONS: None. FINDINGS: VISUALIZED PELVIC BONES: No acute fracture. No worrisome bone lesions. RIGHT HIP: No acute fracture or dislocation. Intact hardware with pin in the femoral neck and intram edullary sean in the proximal femur. No worrisome bone lesions. PELVIC SOFT TISSUES: No significant findings. EXTRAPELVIC SOFT TISSUES: No significant findings. OTHER: No other significant finding. IMPRESSION: INTACT HARDWARE. NO FRACTURE OR OTHER ACUTE OR SIGNIFICANT FINDINGS IN THE RIGHT HIP. TECHNICAL DOCUMENTATION: JOB ID: [id number] Quality ID # [id number]: Final reports with documentation of one or more dose reduction techniques (e.g., Au tomated exposure control, adjustment of the mA and/or kV according to patient size, use of iterative reconstruction technique) 2010 [employer]- All Rights Reserved Reading location - IP/workstation name: [email or web address]
[2019-06-24 14:22] VITALS: BP 130/54
== END 2019-06-24 14:22 | disposition home or self-care (01) ==
LOC: ER 10:23
DX: S70.01XA Contusion of right hip, initial encounter (principal); M25.561 Pain in right knee; W10.9XXA Fall (on) (from) unspecified stairs and steps, initial encounter; E78.00 Pure hypercholesterolemia, unspecified; I10 Essential (primary) hypertension; E11.9 Type 2 diabetes mellitus without complications; E03.9 Hypothyroidism, unspecified; Z88.2 Allergy status to sulfonamides; Z88.6 Allergy status to analgesic agent
CPT/HCPCS: 99284; 82962; 73502; 73562; 73700; A9270 ×2; S0119